=== PATIENT | female | born 1960 | race African-American/Black ===

== ENCOUNTER 2018-05-05 12:41 | Inpatient (IN) | payer OTHER ==
[2018-05-05 13:13] VITALS: BMI 19.3
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
[2018-05-05] MEDS ORDERED: MENTHOL/PHENOL 1 EACH UD MM PRN (13:49)
[2018-05-05] MEDS ORDERED: P-EPHED 60MG/TRIPROLIDI 2.5MG TABLET PO PRN (13:49)
[2018-05-05] MEDS ORDERED: MAGNESIUM CITRATE 300 ML BOTTLE PO PRN (13:49)
[2018-05-05] MEDS ORDERED: MAGNESIUM HYDROX 2400MG/30ML ORAL SUSPENSION 30 ML CUP PO PRN (13:49)
[2018-05-05] MEDS ORDERED: IBUPROFEN 400 MG TABLET (FP) PO PRN (13:49)
[2018-05-05] MEDS ORDERED: MAG HYDROX/AL HYDROX/SIMETH 30 ML UNIT-DOSE CUP PO PRN (13:49)
[2018-05-05] MEDS ORDERED: LOPERAMIDE HCL 2 MG CAPSULE PO PRN (13:49)
[2018-05-05] MEDS ORDERED: guaiFENesin/D-METHORPHAN HB 10 ML UNIT-DOSE CUPS PO PRN (13:49)
[2018-05-05] MEDS ORDERED: hydrOXYzine PAMOATE 25 MG CAPSULE (FP) PO PRN (13:49)
[2018-05-05] MEDS ORDERED: NICOTINE POLACRILEX 2 MG GUM BUC PRN (13:49)
[2018-05-05] MEDS ORDERED: chlordiazePOXIDE HCL 25 MG CAPSULE PO PRN (13:49)
[2018-05-05] MEDS ORDERED: ACETAMINOPHEN 325 MG TABLET (FP) PO PRN (13:49)
--- NOTE | 2018-05-05 16:58 | EKG ---
Test Reason : Blood Pressure : / mmHG Vent. Rate : 086 BPM Atrial Rate : 086 BPM P-R Int : 146 ms QRS Dur : 094 ms QT Int : 384 ms P-R-T Axes : 076 061 049 degrees QTc Int : 459 ms NORMAL SINUS RHYTHM CANNOT RULE OUT ANTERIOR INFARCT , AGE UNDETERMINED ABNORMAL ECG NO PREVIOUS ECGS AVAILABLE Confirmed by HUMBERTO LANGSTON MD ([id number]) on 05/05/2018 4:58:18 PM Referred By: Confirmed By:HUMBERTO LANGSTON MD
[2018-05-05 18:08] LABS: URINE APPEARANCE SLCLOUDY; URINE BILIRUBIN NEGATIVE (<2.0 mg/dL); URINE COLOR YELLOW; URINE GLUCOSE (UA) NEGATIVE (NEGATIVE); URINE KETONE NEGATIVE (NEGATIVE); URINE LEUK ESTERASE NEGATIVE (NEGATIVE); URINE NITRITE NEGATIVE (NEGATIVE); URINE PROTEIN 1+ (NEGATIVE)
[2018-05-05 18:17] LABS: CALCIUM OXALATE CRYSTALS FEW /hpf (NONE SEEN); EPI CELLS RARE /HPF (FEW); URINE BACTERIA MODERATE /hpf (NONE SEEN); URINE MUCUS RARE
[2018-05-05] MEDS ORDERED: MELATONIN 5 MG TABLETS PO PRN (22:00)
[2018-05-05] MEDS: GABAPENTIN 100 MG CAPSULE (FP) PO SCH (22:29)
[2018-05-05] MEDS: THIAMINE HCL 100 MG TABLET (FP) PO SCH (22:29)
[2018-05-05] MEDS: chlordiazePOXIDE HCL 25 MG CAPSULE PO SCH (22:31)
[2018-05-06] MEDS: chlordiazePOXIDE HCL 25 MG CAPSULE PO SCH ×4 (05:39→22:15)
[2018-05-06] MEDS: GABAPENTIN 100 MG CAPSULE (FP) PO SCH ×3 (07:14→22:15)
[2018-05-06] MEDS ORDERED: NICOTINE 14 MG/24 HOURS TOPICAL PATCH TD SCH (10:00)
[2018-05-06] MEDS ORDERED: PRENATAL VITAMINS W/ FOLIC ACID TABLET (FP) PO SCH (10:00)
[2018-05-06 10:49] LABS: HEMATOCRIT 35.3 % (32.4-45.2); HEMOGLOBIN 11.8 GM/dL (10.7-15.3); MCH 27.1 pg (25.7-33.7); MCHC 33.5 g/dl (32.0-36.0); MEAN CELL VOLUME 80.9 fl (80-96); MEAN PLT VOLUME 8.4 fl (7.5-11.1); PLATELET COUNT 270 K/MM3 (134-434); RBC 4.37 M/mm3 (3.60-5.2); RDW 16.3 % (11.6-15.6); WHITE BLOOD COUNT 4.1 K/mm3 (4.0-10.0)
[2018-05-06 11:00] LABS: ALBUMIN 3.7 g/dl (3.4-5.0); ALK PHOS 87 U/L (45-117); ANION GAP 8 MMOL/L (8-16); BILIRUBIN,TOTAL 0.7 mg/dL (0.2-1); BLOOD UREA NITROGEN 23 mg/dL (7-18); CALCIUM 8.6 mg/dL (8.5-10.1); CHLORIDE 104 mmol/L (98-107); CO2 26 mmol/L (21-32); CREATININE 1.1 mg/dL (0.55-1.3); GLUCOSE,RANDOM 121 mg/dL (74-106); POTASSIUM 3.7 mmol/L (3.5-5.1); SGOT/AST 28 U/L (15-37); SGPT/ALT 20 U/L (13-61); SODIUM 138 mmol/L (136-145); TOT PROT 8.6 g/dl (6.4-8.2)
--- NOTE | 2018-05-06 16:42 | PN ---
S CIWA - CIWA Score Nausea/Vomitin-No Nausea/No Vomiting Muscle Tremors: 3 Anxiety: 3 Agitation: 0-Normal Activity Paroxysmal Sweats: 3 Orientation: 0-Oriented Tacttile Disturbances: 3-Moderate Itch/Numb/Burn Auditory Disturbances: 0-None Visual Disturbances: 2-Mild Sensitivity Headache: 0-None Present CIWA-Ar Total Score: 14 BHS Progress Note (SOAP) Subjective: Tremors, Sweating, Itching, Anxious. Objective: PATIENT A & O X 3, OBSERVED AMBULATING ON UNIT. IN NO ACUTE DISTRESS. 05/06/18 16:38 Vital Signs Temperature 97.7 F 05/06/18 13:37 Pulse Rate 70 05/06/18 13:37 Respiratory Rate 18 05/06/18 13:37 Blood Pressure 104/65 05/06/18 13:37 O2 Sat by Pulse Oximetry (%) Laboratory Tests 05/05/18 05/05/18 05/06/18 13:41 14:53 06:30 WBC 4.1 RBC 4.37 Hgb 11.8 Hct 35.3 MCV 80.9 MCH 27.1 MCHC 33.5 RDW 16.3 H Plt Count 270 MPV 8.4 Sodium Potassium Chloride Carbon Dioxide Anion Gap BUN Creatinine Creat Clearance w eGFR POC Glucometer 104 Random Glucose Calcium Total Bilirubin AST ALT Alkaline Phosphatase Total Protein Albumin Urine Color Yellow Urine Appearance Slcloudy Urine pH 5.0 Ur Specific [place] 1.033 Urine Protein 1+ H Urine Glucose (UA) Negative Urine Ketones Negative Urine Blood Negative Urine Nitrite Negative Urine Bilirubin Negative Urine Urobilinogen 2.0 H Ur Leukocyte Esterase Negative Urine WBC (Auto) None Urine RBC (Auto) None Ur Epithelial Cells Rare Calcium Oxalate Crystal Few Urine Bacteria Moderate Urine Mucus Rare 05/06/18 06:30 WBC RBC Hgb Hct MCV MCH MCHC RDW Plt Count MPV Sodium 138 Potassium 3.7 Chloride 104 Carbon Dioxide 26 Anion Gap 8 BUN 23 H Creatinine 1.1 Creat Clearance w eGFR 51.38 POC Glucometer Random Glucose 121 H Calcium 8.6 Total Bilirubin 0.7 AST 28 ALT 20 Alkaline Phosphatase 87 Total Protein 8.6 H Albumin 3.7 Urine Color Urine Appearance Urine pH Ur Specific [place] Urine Protein Urine Glucose (UA) Urine Ketones Urine Blood Urine Nitrite Urine Bilirubin Urine Urobilinogen Ur Leukocyte Esterase Urine WBC (Auto) Urine RBC (Auto) Ur Epithelial Cells Calcium Oxalate Crystal Urine Bacteria Urine Mucus LABS NOTED. RPR RESULT PENDING. 05/06/18 16:41 Assessment: 05/06/18 16:39 WITHDRAWAL SYMPTOMS. ABNORMAL RENAL LAB VALUES. Plan: CONTINUE DETOX. INCREASE DAILY PO FLUID INTAKE. GLUCERNA, 1 CAN BID FOR CALORIE SUPPLEMENTATION. D/C IBUPROFEN AND MAGNESIUM-CONTAINING MEDS. FOR ABNORMAL ADMISSION RENAL LAB VALUES. BMP ON 05/08/2018 FOR ABNORMAL ADMISSION RENAL LAB VALUES.
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
[2018-05-06] MEDS: THIAMINE HCL 100 MG TABLET (FP) PO SCH (22:15)
[2018-05-07] MEDS: chlordiazePOXIDE HCL 25 MG CAPSULE PO SCH (05:20)
[2018-05-07] MEDS: GABAPENTIN 100 MG CAPSULE (FP) PO SCH (05:20)
[2018-05-07 06:14] VITALS: BP 96/62; PULSE 64; TEMP 97.4
--- NOTE | 2018-05-07 14:15 | PN ---
S CIWA - CIWA Score Nausea/Vomitin-No Nausea/No Vomiting Muscle Tremors: 3 Anxiety: 4-Mod. Anxious/Guarded Agitation: 2 Paroxysmal Sweats: 3 Orientation: 0-Oriented Tacttile Disturbances: 1-Very Mild Itch/Numbness Auditory Disturbances: 0-None Visual Disturbances: 0-None Headache: 0-None Present CIWA-Ar Total Score: 13 BHS Progress Note (SOAP) Subjective: Tremors, Sweating, Anxious. Objective: PATIENT A & O X 3, OBSERVED AMBULATING ON UNIT. IN NO ACUTE DISTRESS. 05/07/18 14:14 Vital Signs Temperature 97.4 F L 05/07/18 06:14 Pulse Rate 64 05/07/18 06:14 Respiratory Rate 18 05/07/18 06:14 Blood Pressure 96/62 05/07/18 06:14 O2 Sat by Pulse Oximetry (%) Laboratory Tests 05/05/18 05/05/18 05/06/18 13:41 14:53 06:30 WBC 4.1 RBC 4.37 Hgb 11.8 Hct 35.3 MCV 80.9 MCH 27.1 MCHC 33.5 RDW 16.3 H Plt Count 270 MPV 8.4 Sodium Potassium Chloride Carbon Dioxide Anion Gap BUN Creatinine Creat Clearance w eGFR POC Glucometer 104 Random Glucose Calcium Total Bilirubin AST ALT Alkaline Phosphatase Total Protein Albumin Urine Color Yellow Urine Appearance Slcloudy Urine pH 5.0 Ur Specific [place] 1.033 Urine Protein 1+ H Urine Glucose (UA) Negative Urine Ketones Negative Urine Blood Negative Urine Nitrite Negative Urine Bilirubin Negative Urine Urobilinogen 2.0 H Ur Leukocyte Esterase Negative Urine WBC (Auto) None Urine RBC (Auto) None Ur Epithelial Cells Rare Calcium Oxalate Crystal Few Urine Bacteria Moderate Urine Mucus Rare RPR Titer 05/06/18 05/06/18 06:30 06:30 WBC RBC Hgb Hct MCV MCH MCHC RDW Plt Count MPV Sodium 138 Potassium 3.7 Chloride 104 Carbon Dioxide 26 Anion Gap 8 BUN 23 H Creatinine 1.1 Creat Clearance w eGFR 51.38 POC Glucometer Random Glucose 121 H Calcium 8.6 Total Bilirubin 0.7 AST 28 ALT 20 Alkaline Phosphatase 87 Total Protein 8.6 H Albumin 3.7 Urine Color Urine Appearance Urine pH Ur Specific [place] Urine Protein Urine Glucose (UA) Urine Ketones Urine Blood Urine Nitrite Urine Bilirubin Urine Urobilinogen Ur Leukocyte Esterase Urine WBC (Auto) Urine RBC (Auto) Ur Epithelial Cells Calcium Oxalate Crystal Urine Bacteria Urine Mucus RPR Titer Nonreactive LABS NOTED. Assessment: 05/07/18 14:14 WITHDRAWAL SYMPTOMS. Plan: CONTINUE DETOX.
--- NOTE | 2018-05-07 14:17 | DS ---
[facility] Detox Discharge Summary Admission Date: 05/05/18 Discharge Date: 05/07/18 - History Present History: Alcohol Dependence Additional Comments: PATIENT DOES NOT WISH TO REMAIN TO COMPLETE DETOX REGIMEN. RISKS OF LEAVING DETOX UNIT AGAINST MEDICAL ADVICE AND PRIOR TO COMPLETION OF DETOX REGIMEN EXPLAINED TO PATIENT. PATIENT ADVISED TO FOLLOW-UP WITH MEDICAL PROVIDER DR. Tariq NASSAR ([facility], [place], [place]) WHEN POSSIBLE FOR GENERAL MEDICAL ASSESSMENT AND FOR ABNORMALITIES NOTED ON CXR DONE WHILE ADMITTED FOR DETOX (HISTORY OF POSITIVE PPD; PATIENT REPORTS THAT SHE COMPLETED A FULL COURSE OF ANTIBIOTIC TREATMENT MANY YEARS AGO) AND FOR ABNORMAL RENAL LAB VALUES NOTED (PATIENT DENIES KNOWN HISTORY OF RENAL DISEASE) WHILE ADMITTED FOR DETOX. PATIENT VERBALIZED UNDERSTANDING OF RECOMMENDATIONS. COPIES OF CXR REPORT AND OF ALL LABS DRAWN WHILE ADMITTED FOR DETOX GIVEN TO PATIENT PRIOR TO HER LEAVING DETOX UNIT. PATIENT ADVISED TO GO IMMEDIATELY TO NEAREST ER SHOULD ANY INTOLERABLE DETOX SYMPTOMS DEVELOP AT ANY TIME. PATIENT VERBALIZED UNDERSTANDING OF ALL INFORMATION / RECOMMENDATIONS PRESENTED TO HIM PRIOR TO DEPARTURE FROM DETOX UNIT. PATIENT LEFT DETOX UNIT IN STABLE MEDICAL CONDITION. Pertinent Past History: Asthma, Weight Loss, Nicotine Dependence, H.I.V., History Of Schizoaffective Disorder. - Physical Exam Results Vital Signs: Vital Signs Temperature 97.4 F L 05/07/18 06:14 Pulse Rate 64 05/07/18 06:14 Respiratory Rate 18 05/07/18 06:14 Blood Pressure 96/62 05/07/18 06:14 O2 Sat by Pulse Oximetry (%) Pertinent Admission Physical Exam Findings: WITHDRAWAL SYMPTOMS. Laboratory Tests 05/05/18 05/05/18 05/06/18 13:41 14:53 06:30 WBC 4.1 RBC 4.37 Hgb 11.8 Hct 35.3 MCV 80.9 MCH 27.1 MCHC 33.5 RDW 16.3 H Plt Count 270 MPV 8.4 Sodium Potassium Chloride Carbon Dioxide Anion Gap BUN Creatinine Creat Clearance w eGFR POC Glucometer 104 Random Glucose Calcium Total Bilirubin AST ALT Alkaline Phosphatase Total Protein Albumin Urine Color Yellow Urine Appearance Slcloudy Urine pH 5.0 Ur Specific [place] 1.033 Urine Protein 1+ H Urine Glucose (UA) Negative Urine Ketones Negative Urine Blood Negative Urine Nitrite Negative Urine Bilirubin Negative Urine Urobilinogen 2.0 H Ur Leukocyte Esterase Negative Urine WBC (Auto) None Urine RBC (Auto) None Ur Epithelial Cells Rare Calcium Oxalate Crystal Few Urine Bacteria Moderate Urine Mucus Rare RPR Titer 05/06/18 05/06/18 06:30 06:30 WBC RBC Hgb Hct MCV MCH MCHC RDW Plt Count MPV Sodium 138 Potassium 3.7 Chloride 104 Carbon Dioxide 26 Anion Gap 8 BUN 23 H Creatinine 1.1 Creat Clearance w eGFR 51.38 POC Glucometer Random Glucose 121 H Calcium 8.6 Total Bilirubin 0.7 AST 28 ALT 20 Alkaline Phosphatase 87 Total Protein 8.6 H Albumin 3.7 Urine Color Urine Appearance Urine pH Ur Specific [place] Urine Protein Urine Glucose (UA) Urine Ketones Urine Blood Urine Nitrite Urine Bilirubin Urine Urobilinogen Ur Leukocyte Esterase Urine WBC (Auto) Urine RBC (Auto) Ur Epithelial Cells Calcium Oxalate Crystal Urine Bacteria Urine Mucus RPR Titer Nonreactive LABS NOTED. - Treatment Hospital Course: Detox Protocol Followed, Detoxed Safely - Medication Discharge Medications: Ambulatory Orders Albuterol Sulfate Inhaler - [Ventolin Hfa Inhaler -] 1 - 2 inh PO Q4H PRN Beclomethasone Dipropionate [Qvar Redihaler] 10.6 gm IH BID 05/05/18 Darunavir/Cobicistat [Prezcobix 800 mg-150 mg Tablet] 1 each PO DAILY 05/05/18 Emtricitabine/Tenofov Alafenam [Descovy 200-25 mg Tablet (Nf)] 1 each PO DAILY 05/05/18 - Diagnosis (1) Alcohol dependence with withdrawal Status: Acute Qualifiers: Complication of substance-induced condition: uncomplicated Qualified Code(s ): F10.230 - Alcohol dependence with withdrawal, uncomplicated (2) Cocaine dependence Status: Acute Qualifiers: Substance use status: uncomplicated Qualified Code(s): F14.20 - Cocaine dependence, uncomplicated (3) Weight loss Status: Acute (4) Asthma Status: Chronic Qualifiers: Asthma severity: mild Asthma persistence: unspecified Asthma complication type: unspecified Qualified Code(s): J45.909 - Unspecified asthma , uncomplicated (5) Diabetes mellitus type 2 in nonobese Status: Chronic (6) HIV (human immunodeficiency virus infection) Status: Chronic Qualifiers: HIV symptom status: unspecified Qualified Code(s): B20 - Human immunodeficiency virus [HIV] disease (7) Substance induced mood disorder Status: Suspected - AMA Did Patient Leave Against Medical Advice: Yes (PATIENT DID NOT WISH TO REAMIN TO COMPLETE DETOX REGIMEN.)
[2018-05-07] MEDS ORDERED: chlordiazePOXIDE 5 MG CAPSULE PO SCH (23:00)
[2018-05-08] MEDS ORDERED: chlordiazePOXIDE HCL 10 MG CAPSULE PO SCH (23:00)
== END 2018-05-07 10:28 | disposition left against medical advice (07) | DRG 770 ==
LOC: YASAS 12:41 → Y3N 13:46
PROVIDERS: ADMIT Surgery; ATTEND Surgery
PROC: HZ2ZZZZ Detoxification Services for Substance Abuse Treatment (ICD-10-PCS; principal; 2018-05-05)
DX: F10.230 Alcohol dependence with withdrawal, uncomplicated (principal); F14.20 Cocaine dependence, uncomplicated; F17.210 Nicotine dependence, cigarettes, uncomplicated; F19.24 Other psychoactive substance dependence with psychoactive substance-induced mood disorder; Z21 Asymptomatic human immunodeficiency virus [HIV] infection status; J45.909 Unspecified asthma, uncomplicated; E11.9 Type 2 diabetes mellitus without complications; R94.4 Abnormal results of kidney function studies; Z88.0 Allergy status to penicillin
CPT/HCPCS: 36415; 71046-TC-FY; 80053; 81003; 81015; 82962; 85027; 86593; 93005; 93010

== ENCOUNTER 2019-01-27 17:01 | Inpatient (IN) | payer OTHER ==
[2019-01-27 17:16] VITALS: BMI 18.5
[2019-01-27] MEDS ORDERED: ACETAMINOPHEN 325 MG TABLET (FP) PO ONE (17:53)
[2019-01-27 18:25] LABS: BASO % 0.4 % (0-2.0); EOS % 0.2 % (0-4.5); HEMATOCRIT 31.6 % (32.4-45.2); HEMOGLOBIN 10.5 GM/dL (10.7-15.3); LYMPH % 28.8 % (8-40); MCHC 33.2 g/dl (32.0-36.0); MEAN CELL VOLUME 75.2 fl (80-96); MEAN PLT VOLUME 7.5 fl (7.5-11.1); MONO % 8.9 % (3.8-10.2); NEUT % 61.7 % (42.8-82.8); PLATELET COUNT 357 K/MM3 (134-434); RBC 4.21 M/mm3 (3.60-5.2); RDW 14.7 % (11.6-15.6); WHITE BLOOD COUNT 9.9 K/mm3 (4.0-10.0)
--- NOTE | 2019-01-27 18:25 | PDOC ---
*Physical Exam - Vital Signs Last Vital Signs Temp Pulse Resp BP Pulse Ox 102.7 F H 82 18 105/55 L 98 01/27/19 17:13 01/27/19 17:13 01/27/19 17:13 01/27/19 17:13 01/27/19 17:13 ED Treatment Course - LABORATORY CBC & Chemistry Diagram: 01/28/19 05:50 01/28/19 05:50 - Medications Given in the ED: ED Medications Discontinued Medications Generic Name Dose Route Start Last Admin Trade Name Tim PRN Reason Stop Dose Admin Acetaminophen 975 mg 01/27/19 17:53 01/27/19 18:04 Tylenol - PO 01/27/19 17:54 975 mg ONCE ONE Administration Medical Decision Making - Medical Decision Making 01/27/19 18:24 58-year-old female referred from [facility] due to fevers. Patient has had a symptom of upper respiratory infection for the past 2 weeks. Noted to be febrile to 102 today. Patient has a history of HIV, unknown CD4 viral load. Patient does have a cough Pt seen by Midlevel Provider under my direct supervision Pt interviewed and examined Patient is very angry and frustrated with staff Regular rate and rhythm Rhonchorous breath sounds Ancillary studies reviewed Laboratory Tests 01/27/19 18:15 WBC 9.9 Hgb 10.5 L Hct 31.6 L Plt Count 357 D CMP pending Would have low threshold to admit this patient given HIV, unknown CD4 viral load , unknown compliance with HAART CT pending I agree with plan as outlined by Midlevel Provider 01/27/19 18:31 01/27/19 18:49 Discharge - Discharge Information Problems reviewed: Yes Clinical Impression/Diagnosis: Pneumonia Qualifiers: Pneumonia type: due to unspecified organism Laterality: bilateral Lung location : unspecified part of lung Qualified Code(s): J18.9 - Pneumonia, unspecified organism Condition: Stable - Admission Yes - Follow up/Referral - Patient Discharge Instructions - Post Discharge Activity
--- NOTE | 2019-01-27 19:04 | PDOC ---
History of Present Illness - General Chief Complaint: Cold Symptoms Stated Complaint: FEVER Time Seen by Provider: 01/27/19 17:47 History Source: Patient Exam Limitations: No Limitations Past History - Past Medical History Allergies/Adverse Reactions: Allergies Allergy/AdvReac Type Severity Reaction Status Date / Time Penicillins Allergy Verified 01/27/19 17:16 apple AdvReac Verified 01/27/19 17:16 apple juice AdvReac Uncoded 01/27/19 17:16 Home Medications: Ambulatory Orders Albuterol Sulfate Inhaler - [Ventolin Hfa Inhaler -] 1 - 2 inh PO Q4H PRN Beclomethasone Dipropionate [Qvar Redihaler] 10.6 gm IH BID 05/05/18 Bictegrav/Emtricit/Tenofov Ala [Biktarvy 50-200-25 mg Tablet] 1 each PO DAILY Metformin HCl [Glucophage] 500 mg PO BID 01/27/19 Quetiapine Fumarate [Seroquel -] 25 mg PO HS 01/27/19 Asthma: Yes (ON FLOVENT) Cardiac Disorders: No COPD: No Diabetes: Yes (DIET CONTROLLED) GI Disorders: No Disorders: No HTN: No Kidney Stones: No Seizures: No - Surgical History Abdominal Surgery: No Appendectomy: No Cardiac Surgery: No Cholecystectomy: No Lung Surgery: No Neurologic Surgery: No Orthopedic Surgery: No - Psycho Social/Smoking Cessation Hx Smoking History: Current every day smoker Have you smoked in the past 12 months: Yes Number of Cigarettes Smoked Daily: 5 Information on smoking cessation initiated: No 'Breaking Loose' booklet given: 05/05/18 Drug/Substance Use Hx: Yes Substance Use Type: Alcohol, Cocaine Hx Substance Use Treatment: Yes ([facility] detox one week ago left AMA ) Respiratory Specific PMHX - Complaint Specific PMHX Hx TB (Tuberculosis): No *Physical Exam - Vital Signs Last Vital Signs Temp Pulse Resp BP Pulse Ox 102.1 F H 82 18 105/55 L 98 01/27/19 18:59 01/27/19 17:13 01/27/19 17:13 01/27/19 17:13 01/27/19 17:13 - Physical Exam General Appearance: No: Apparent Distress HEENT: positive: Normal Voice. negative: Muffled/Hoarse voice, Pharyngeal Erythema, Tonsillar Exudate, Tonsillar Erythema, Nasal Congestion, Rhinorrhea Respiratory/Chest: positive: Lungs Clear, Normal Breath Sounds. negative: Respiratory Distress Cardiovascular: positive: Regular Rhythm, Regular Rate, S1, S2. negative: Murmur Gastrointestinal/Abdominal: positive: Normal Bowel Sounds, Soft. negative: Tender, Distended, Guarding, Rebound Integumentary: positive: Normal Color Neurologic: positive: Alert ED Treatment Course - LABORATORY CBC & Chemistry Diagram: 01/27/19 18:15 01/27/19 18:15 - ADDITIONAL ORDERS Additional order review: 01/27/19 18:15 RBC 4.21 MCV 75.2 L MCHC 33.2 RDW 14.7 MPV 7.5 D Neutrophils % 61.7 Lymphocytes % 28.8 Monocytes % 8.9 Eosinophils % 0.2 Basophils % 0.4 - RADIOLOGY Radiology Studies Ordered: Category Date Time Status CHEST CT WITHOUT CONTRAST [CT] Stat CT Scan 01/27/19 18:49 Ordered CHEST PA & LAT [RAD] Stat Radiology 01/27/19 17:53 Taken - Medications Given in the ED: ED Medications Discontinued Medications Generic Name Dose Route Start Last Admin Trade Name Freq PRN Reason Stop Dose Admin Acetaminophen 975 mg 01/27/19 17:53 01/27/19 18:04 Tylenol - PO 01/27/19 17:54 975 mg ONCE ONE Administration Medical Decision Making - Medical Decision Making 58 y/o F hx of asthma, DM, HIV (unknown last viral load, unknown last CD4 count) , depression, schizoaffective disorder, substance abuse (cocaine, alcohol) was sent from [facility] as feeling "sick" x 2 weeks. Patient endorses having productive cough with phlegm, rhinorrhea and congestion. Was unaware of any fever until it was checked in triage today. Denies taking any antipyretics today. Denies ear pain, throat pain, sob, cp, abd pain, n/v/d, urinary symptoms. Denies recent hospitalizations. Last alcohol drink this AM. Is smoker since age 13, used to smoke 1 ppd, but has now cut down to 2 cigs/day. R/O source of fever Plan: Labs, CXR, blood/urine culture, flu swab, Tylenol CXR was reviewed - new opacities noted on R side of lung, few on L side as well D/W Dr. Velsaquez - recommends CT chest non-contrast for further evaluation No suspicion for HCAP; likely CAP Patient allergic to penicillin Will start on Levaquin 01/27/19 19:00 CT chest shows B/L upper and lower infiltrated Also notable for several B/L upper and lower lobe spiculated nodular opacities - could possibly be multifocal primary neoplastic disease Will admit patient; will need pulmonary consult as inpatient 01/27/19 20:14 Discharge - Discharge Information Problems reviewed: Yes Clinical Impression/Diagnosis: Pneumonia Qualifiers: Pneumonia type: due to unspecified organism Laterality: bilateral Lung location : unspecified part of lung Qualified Code(s): J18.9 - Pneumonia, unspecified organism Condition: Stable - Admission Yes - Follow up/Referral - Patient Discharge Instructions - Post Discharge Activity
[2019-01-27 19:07] LABS: ALBUMIN 2.9 g/dl (3.4-5.0); BILIRUBIN,TOTAL 0.4 mg/dL (0.2-1); BLOOD UREA NITROGEN 9.8 mg/dL (7-18); CALCIUM 8.6 mg/dL (8.5-10.1); CREATININE 0.9 mg/dL (0.55-1.3); POTASSIUM 3.2 mmol/L (3.5-5.1); TOT PROT 8.9 g/dl (6.4-8.2)
[2019-01-27] MEDS ORDERED: POTASSIUM CHLORIDE ORAL LIQUID 20 MEQ/15 ML PO ONE (19:18)
[2019-01-27] MEDS ORDERED: IBUPROFEN 600 MG TABLET (FP) PO ONE (19:38)
[2019-01-27 19:40] LABS: MAGNESIUM 1.9 mg/dL (1.8-2.4)
[2019-01-27] MEDS ORDERED: POTASSIUM CHLORIDE ORAL LIQUID 20 MEQ/15 ML ONE (20:21)
--- NOTE | 2019-01-27 20:35 | PN ---
Teaching Attending Note Name of Resident: Yue Meraz ATTENDING PHYSICIAN STATEMENT I saw and evaluated the patient. I reviewed the resident's note and discussed the case with the resident. I agree with the resident's findings and plan as documented. SUBJECTIVE: Patient is a 58 year old woman with PMH of Penicillin allergy, Asthma, DM, Tobacco use, HIV disease(unknown last viral load/CD4 count), Depression, Schizoaffective disorder and Polysubstance abuse (cocaine, alcohol) sent from [facility] for "feeling sick" x 2 weeks. Patient has had productive cough with phlegm, rhinorrhea and congestion. Was unaware of any fever until it was checked in triage today. Denies taking any antipyretics today. Denies ear pain, throat pain, SOB, chest pain, abdominal pain, nausea, vomiting, diarrhea or urinary symptoms. Denies recent hospitalizations. Last alcohol drink was this morning. OBJECTIVE: Alert Vital Signs Period Temp Pulse Resp BP Sys/Perkins Pulse Ox Last 24 Hr 99 F-102.7 F 82 18 105/55 98 HEENT: No Jaundice, eye redness or discharge, PERRLA, EOMI. Normocephalic, atraumatic. External ears are normal and hearing is grossly intact. No nasal discharge. Neck: Supple, nontender. No palpable adenopathy or thyromegaly. No JVD Chest: Good effort. Clear to auscultation and percussion. Heart: Regular. No S3, rub or murmur Abdomen: Not distended, soft, nontender and no HSM. No rebound or guarding. Normal bowel sounds. Ext: Peripheral pulses intact. No leg edema. Skin: Warm and dry. No petechiae, rash or ecchymosis. Neuro: Alert. Oriented x3. CN 2-12 grossly intact. Sensation grossly intact in all four extremities and DTR are symmetric. Psych: Appropriate mood and affect. Good insight. Current Medications Generic Name Dose Route Start Last Admin Trade Name Freq PRN Reason Stop Dose Admin Sodium Chloride 500 mls @ 500 mls/hr 01/27/19 21:04 Normal Saline - IV 01/27/19 22:03 ASDIR STA Home Medications Medication Instructions Recorded Albuterol Sulfate Inhaler - 1 - 2 inh PO Q4H PRN 05/05/18 [Ventolin Hfa Inhaler -] Beclomethasone Dipropionate [Qvar 10.6 gm IH BID 05/05/18 Redihaler] Bictegrav/Emtricit/Tenofov Ala 1 each PO DAILY 01/27/19 [Biktarvy 50-200-25 mg Tablet] Metformin HCl [Glucophage] 500 mg PO BID 01/27/19 Quetiapine Fumarate [Seroquel -] 25 mg PO HS 01/27/19 Abnormal Lab Results 01/27/19 01/27/19 18:15 18:15 Hgb 10.5 L Hct 31.6 L MCV 75.2 L MCH 25.0 L Sodium 134 L Potassium 3.2 L Anion Gap 4 L ALT 9 L Total Protein 8.9 H Albumin 2.9 L ASSESSMENT AND PLAN: 1. Sepsis due to Multilobar pneumonia - CXR showed RLL infiltrates. CT chest shows bilateral upper and lower infiltrates. Also notable for several bilateral upper and lower lobe spiculated nodular opacities - could possibly be multifocal primary neoplastic disease. While in the ER, her BP dropped to a systolic BP of 80-85 mmHg. Flu swab negative. Sepsis workup done. Will rule out TB (sputum for AFB, Quantiferon-TB gold), place on isolation, urine legionella, sputum cytology, get viral load/CD4 count, consult ID and Pulmonary. May need bronchoscopy to characterize upper lobe nodules. Treat with IV Vancomycin, Levofloxacin and Azithromycin. EKG is pending. Etiology of hyponatremia and hypokalemia is unclear. Will check serum Mg+, give KCL and IV NS. Will continue comprehensive care for all of patients comorbid conditions including HAART for HIV. 2. DM For now, we will hold the home diabetes drugs and implement sliding scale insulin regimen. Provide comprehensive diabetes care with patient teaching and counseling about the importance of adherence to prescribed diabetes regimen, euglycemia, eye care and foot care. 3. Tobacco Use Counseled on risks associated with tobacco use. We will provide patient all the necessary assistance to facilitate smoking cessation and prescribe Nicotine patch. 4. Anemia with low MCV - Likely multifactorial. Do basic anemia work up including serial stool guaiacs, reticulocyte count and iron studies. Refer to GI for outpatient colonoscopy. 5. Polysubstance abuse - Monitor closely for drug withdrawal. Implement [facility] alcohol withdrawal protocol and do neurochecks. Implement seizure, fall and aspiration precautions. Treat with thiamine and folic acid and monitor electrolytes (Ca,Mg,K,P). Counseled patient about abstaining from alcohol and illicit drug use. Will consult leave specialist and refer to alcohol/drug detox upon discharge. 6. DVT prophylaxis - Lovenox 40 mg SQ q 24 hours. 7. Advance directives - Full code
[2019-01-27] MEDS ORDERED: SODIUM CHLORIDE 500 ML IV STA (21:04)
[2019-01-27] MEDS ORDERED: SODIUM CHLORIDE 1,000 ML IV SCH (21:45)
[2019-01-27] MEDS ORDERED: PIPERACILLIN/TAZOB 3.375 GM 3.375 GM in DEXTROSE 5%-WATER - 50 ML IVPB SCH (21:48)
[2019-01-27] MEDS ORDERED: AZITHROMYCIN IVPB 500 MG/250 ML BAG IVPB ONE ×2 (21:49→22:32)
[2019-01-27] MEDS ORDERED: chlordiazePOXIDE HCL 25 MG CAPSULE PO PRN (21:52)
[2019-01-27] MEDS ORDERED: FOLIC ACID 1 MG TABLET (FP) ONE (22:31)
[2019-01-27] MEDS ORDERED: chlordiazePOXIDE HCL 25 MG CAPSULE ONE (22:31)
[2019-01-27] MEDS ORDERED: THIAMINE HCL 100 MG TABLET (FP) ONE (22:31)
--- NOTE | 2019-01-27 22:31 | HP ---
CHIEF COMPLAINT: cough and fever PCP: N/A HISTORY OF PRESENT ILLNESS: 58 y/o F, pmh of HIV on Biktarvy (unknown CD4 count and Viral load), depression , schizoaffective disorder, substance abuse (cocaine and alcohol), DM on metformin, presents from [facility] for a productive cough and was found to be febrile with a temp of 102. Pt came from [place] for detox at [facility], when she began to develop symptoms. In the Ed, she was started on Levaquin. CAT scan of her chest was evident for b/l pneumonia and spiculated nodular findings. She was also found to be hypotensive in the ER, for which she was given a bolus. She sees an HIV specialist who prescribes her HIV meds, however, she reports she has been noncompliant with meds for the past few weeks because she ran out. She was hoping for refills when she came to [facility]. Currently, pt appears stable, but remains hypotensive and symptomatic. Denies c/n/v/d/sob/chest pain/ abdominal pain/night sweats. ER course was notable for: (1)levaquin (2)CT scan: b/l infiltrates, spiculated nodular opacities seen b/l (3)BCx pending Recent Travel: denies PAST MEDICAL HISTORY: HIV on Biktarvy (unknown CD4 count and Viral load), depression, schizoaffective disorder, substance abuse (cocaine and alcohol), DM PAST SURGICAL HISTORY: x2 Social History: Smokin ciggs/day x 48 yrs Alcohol:10 drinks/day, vodka, last drink today morning Drugs: cocaine- last use in the morning today Allergies Penicillins Allergy (Verified 01/27/19 17:16) apple Adverse Reaction (Verified 01/27/19 17:16) apple juice Adverse Reaction (Uncoded 01/27/19 17:16) HOME MEDICATIONS: Home Medications Medication Instructions Recorded Albuterol Sulfate Inhaler - 1 - 2 inh PO Q4H PRN 05/05/18 [Ventolin Hfa Inhaler -] Beclomethasone Dipropionate [Qvar 10.6 gm IH BID 05/05/18 Redihaler] Bictegrav/Emtricit/Tenofov Ala 1 each PO DAILY 01/27/19 [Biktarvy 50-200-25 mg Tablet] Metformin HCl [Glucophage] 500 mg PO BID 01/27/19 Quetiapine Fumarate [Seroquel -] 25 mg PO HS 01/27/19 REVIEW OF SYSTEMS CONSTITUTIONAL: Absent: denies fever, chills, diaphoresis, generalized weakness, HEENT: Absent: visual changes CARDIOVASCULAR: Absent: chest pain, palpitations, irregular heart rate, RESPIRATORY: Absent: cough, shortness of breath, dyspnea with exertion, orthopnea, GASTROINTESTINAL: Absent: abdominal pain, abdominal distension, nausea, vomiting, diarrhea, GENITOURINARY: Absent: dysuria, frequency, urgency, hesitancy, hematuria, flank pain, HEMATOLOGIC/IMMUNOLOGIC: Absent: easy bleeding, easy bruising, lymphadenopathy, ENDOCRINE: Absent: unexplained weight gain, unexplained weight loss, heat intolerance, cold intolerance NEUROLOGIC: Absent: headache, focal weakness or paresthesias, dizziness, unsteady gait, seizure, PSYCHIATRIC: Absent: anxiety, depression, PHYSICAL EXAMINATION Vital Signs - 24 hr 01/27/19 01/27/19 01/27/19 17:13 18:59 20:44 Temperature 102.7 F H 102.1 F H 99 F Pulse Rate 82 Respiratory 18 Rate Blood Pressure 105/55 L O2 Sat by Pulse 98 Oximetry (%) GENERAL: Awake, alert, and fully oriented, in no acute distress. EYES: Pupils equal, round and reactive to light, extraocular movements intact, sclera anicteric, conjunctiva clear. Dry mucosa EARS, NOSE, THROAT: oropharynx clear without exudates. NECK: Normal range of motion, supple without lymphadenopathy, JVD, or masses. LUNGS: Breath sounds equal, clear to auscultation bilaterally. No wheezes, and no crackles. HEART: Regular rate and rhythm, normal S1 and S2 without murmur, rub or gallop. ABDOMEN: Soft, nontender, not distended, normoactive bowel sounds, no guarding, no rebound, no masses. UPPER EXTREMITIES: 2+ pulses, warm, well-perfused. No cyanosis. LOWER EXTREMITIES: 2+ pulses, warm, well-perfused. No calf tenderness. PSYCHIATRIC: Cooperative. Good eye contact. Appropriate mood and affect. SKIN: Warm, dry, normal turgor, no rashes or lesions noted, Laboratory Results - last 24 hr CBC,CMP WBC 9.9 K/mm3 (4.0-10.0) 01/27/19 18:15 RBC 4.21 M/mm3 (3.60-5.2) 01/27/19 18:15 Hgb 10.5 GM/dL (10.7-15.3) L 01/27/19 18:15 Hct 31.6 % (32.4-45.2) L 01/27/19 18:15 MCV 75.2 fl (80-96) L 01/27/19 18:15 MCH 25.0 pg (25.7-33.7) L 01/27/19 18:15 MCHC 33.2 g/dl (32.0-36.0) 01/27/19 18:15 RDW 14.7 % (11.6-15.6) 01/27/19 18:15 Plt Count 357 K/MM3 (134-434) D 01/27/19 18:15 MPV 7.5 fl (7.5-11.1) D 01/27/19 18:15 Absolute Neuts (auto) 6.1 K/mm3 (1.5-8.0) 01/27/19 18:15 Neutrophils % 61.7 % (42.8-82.8) 01/27/19 18:15 Lymphocytes % 28.8 % (8-40) 01/27/19 18:15 Monocytes % 8.9 % (3.8-10.2) 01/27/19 18:15 Eosinophils % 0.2 % (0-4.5) 01/27/19 18:15 Basophils % 0.4 % (0-2.0) 01/27/19 18:15 Nucleated RBC % 0 % (0-0) 01/27/19 18:15 Sodium 134 mmol/L (136-145) L 01/27/19 18:15 Potassium 3.2 mmol/L (3.5-5.1) L 01/27/19 18:15 Chloride 100 mmol/L (98-107) 01/27/19 18:15 Carbon Dioxide 29 mmol/L (21-32) 01/27/19 18:15 Anion Gap 4 MMOL/L (8-16) L 01/27/19 18:15 BUN 9.8 mg/dL (7-18) 01/27/19 18:15 Creatinine 0.9 mg/dL (0.55-1.3) 01/27/19 18:15 Est GFR (CKD-EPI)AfAm 82.26 01/27/19 18:15 Est GFR (CKD-EPI)NonAf 70.98 01/27/19 18:15 Random Glucose 100 mg/dL (74-106) 01/27/19 18:15 Calcium 8.6 mg/dL (8.5-10.1) 01/27/19 18:15 Magnesium 1.9 mg/dL (1.8-2.4) 01/27/19 18:15 Total Bilirubin 0.4 mg/dL (0.2-1) 01/27/19 18:15 AST 22 U/L (15-37) 01/27/19 18:15 ALT 9 U/L (13-61) L 01/27/19 18:15 Alkaline Phosphatase 82 U/L (45-117) 01/27/19 18:15 Total Protein 8.9 g/dl (6.4-8.2) H 01/27/19 18:15 Albumin 2.9 g/dl (3.4-5.0) L 01/27/19 18:15 ASSESSMENT/PLAN: 58 y/o F, pmh of HIV on Biktarvy (unknown CD4 count and Viral load), depression , schizoaffective disorder, substance abuse (cocaine and alcohol), DM on metformin, presents from [facility] for a productive cough and was found to be febrile with a temp of 102 is admitted for pneumonia #Sepsis 2/2 to Pneumonia Likely 2/2 to opportunistic infxn vs HAP vs CAP possibly shock if not responsive to fluid BP at 85/48 w/ fever w/ pneumonia- source NS at 100 NS bolus Regular BP monitoring Cont Levaquin Start on Azithromycin 500 today and titrate to 250 starting jas Vanc 1gm ID consulted- Dr. Gagnon Urine Legionella Sputum Cx- will f/u AFB cx- f/u #Spiculated nodular opacities Concerning for neoplasm vs TB vs opportunistic infxn Pulmonary consulted- Dr. Cassidy TB testing- Quantiferon ordered #HIV HIV 4th gen test- CD4 count and viral load UA ordered #Anemia hb 10.5 today in the past hb 11.8 iron studies ordered consider GI consult in the am #Alcohol withdrawal started on Librium protocal folate and thiamine Fall precaution #DVT Lovenox FEN diabetic diet NS at 100 monitor lytes Dispo: f/u ID consult, pulmonary consult, f/u tests and Cx Visit type - Emergency Visit Emergency Visit: Yes ED Registration Date: 01/27/19 Care time: The patient presented to the Emergency Department on the above date and was hospitalized for further evaluation of their emergent condition. - New Patient This patient is new to me today: Yes Date on this admission: 01/28/19 - Critical Care Critical Care patient: No ATTENDING PHYSICIAN STATEMENT I saw and evaluated the patient. I reviewed the resident's note and discussed the case with the resident. I agree with the resident's findings and plan as documented. SUBJECTIVE: OBJECTIVE: ASSESSMENT AND PLAN:
[2019-01-27] MEDS: chlordiazePOXIDE HCL 25 MG CAPSULE PO SCH ×3 (22:40→22:50)
[2019-01-27] MEDS: FOLIC ACID 1 MG TABLET (FP) PO SCH (22:48)
[2019-01-27] MEDS: THIAMINE HCL 100 MG TABLET (FP) PO SCH (22:48)
[2019-01-27 23:01] LABS: EPI CELLS 8.1 /HPF (0-5/HPF); HYALINE CASTS 54 /lpf (0-8); URINE APPEARANCE TURBID; URINE BACTERIA 67.6 /hpf (NEGATIVE); URINE BILIRUBIN NEGATIVE (NEGATIVE); URINE COLOR DK YELLOW; URINE GLUCOSE (UA) NEGATIVE (NEGATIVE); URINE KETONE TRACE (NEGATIVE); URINE LEUK ESTERASE TRACE (NEGATIVE); URINE NITRITE NEGATIVE (NEGATIVE); URINE PROTEIN 2+ (NEGATIVE); URINE RBC 1 /hpf (0-4); URINE WBC 12 /hpf (0-5)
[2019-01-28] MEDS: VANCOMYCIN 1,250 MG in DEXTROSE 5%-WATER - 250 ML IVPB SCH ×2 (00:50→09:36)
[2019-01-28] MEDS: INSULIN SLIDING SCALE (NOVOLOG) 1 VIAL SQ SCH ×3 (02:57→10:20)
[2019-01-28] MEDS ORDERED: chlordiazePOXIDE HCL 25 MG CAPSULE ONE (05:08)
[2019-01-28 06:39] LABS: BASO % 0.8 % (0-2.0); EOS % 0.5 % (0-4.5); HEMATOCRIT 32.3 % (32.4-45.2); HEMOGLOBIN 10.5 GM/dL (10.7-15.3); LYMPH % 30.7 % (8-40); MCH 24.7 pg (25.7-33.7); MCHC 32.6 g/dl (32.0-36.0); MEAN CELL VOLUME 75.7 fl (80-96); MEAN PLT VOLUME 8.1 fl (7.5-11.1); MONO % 12.1 % (3.8-10.2); NEUT % 55.9 % (42.8-82.8); PLATELET COUNT 304 K/MM3 (134-434); RBC 4.27 M/mm3 (3.60-5.2); RDW 14.4 % (11.6-15.6); WHITE BLOOD COUNT 5.4 K/mm3 (4.0-10.0)
[2019-01-28 07:05] LABS: ALBUMIN 2.6 g/dl (3.4-5.0); BILIRUBIN,TOTAL 0.5 mg/dL (0.2-1); CALCIUM 8.6 mg/dL (8.5-10.1); CREATININE 0.7 mg/dL (0.55-1.3); MAGNESIUM 2.1 mg/dL (1.8-2.4); PHOSPHOROUS 2.8 mg/dL (2.5-4.9); POTASSIUM 3.4 mmol/L (3.5-5.1); TOT PROT 8.2 g/dl (6.4-8.2)
[2019-01-28 07:28] VITALS: TEMP 99.5
[2019-01-28] MEDS ORDERED: AZITHROMYCIN IVPB 500 MG/250 ML BAG IVPB ONE (08:01)
[2019-01-28] MEDS ORDERED: VANCOMYCIN 500 MG VIAL (RESTRICTED TO ID ONLY) ONE (08:01)
[2019-01-28] MEDS ORDERED: THIAMINE HCL 100 MG TABLET (FP) ONE (08:01)
[2019-01-28] MEDS ORDERED: FOLIC ACID 1 MG TABLET (FP) ONE (08:01)
[2019-01-28] MEDS ORDERED: VANCOMYCIN 1 GRAM (PRE-DOCKED) 1,000 MG/250 ML BAG IVPB ONE (08:02)
[2019-01-28] MEDS ORDERED: ENOXAPARIN NA (PORCINE) 40 MG/0.4 ML DISP.SYRIN SQ ONE (08:02)
[2019-01-28] MEDS: chlordiazePOXIDE HCL 25 MG CAPSULE PO SCH ×2 (08:16→12:41)
[2019-01-28] MEDS: THIAMINE HCL 100 MG TABLET (FP) PO SCH (09:04)
[2019-01-28] MEDS: FOLIC ACID 1 MG TABLET (FP) PO SCH (09:04)
[2019-01-28] MEDS ORDERED: AZITHROMYCIN IVPB 250 MG in DEXTROSE 5%-WATER - 250 ML IVPB SCH (10:00)
[2019-01-28] MEDS ORDERED: ENOXAPARIN NA (PORCINE) 40 MG/0.4 ML DISP.SYRIN SQ SCH (10:00)
[2019-01-28] MEDS ORDERED: VANCOMYCIN 1 GM in D5W (PRE-DOCKED) 1,000 MG/250 ML IVPB SCH (10:00)
[2019-01-28 10:02] VITALS: BP 100/55; PULSE 67
--- NOTE | 2019-01-28 10:25 | PN ---
Progress Note (short form) - Note Progress Note: Patient is seen and examined, Patient is c/o not having good food. Asking for the lunch. Otherwise feels well, no fever or chills. Vital Signs Temperature 99.5 F 01/28/19 07:22 Pulse Rate 67 01/28/19 10:00 Respiratory Rate 18 01/28/19 10:00 Blood Pressure 100/55 L 01/28/19 10:00 O2 Sat by Pulse Oximetry (%) 99 01/28/19 10:00 GENERAL: The patient is awake, alert, and fully oriented, in no acute distress. HEAD: Normal with no signs of trauma. EYES: PERRL, extraocular movements intact, sclera anicteric, conjunctiva clear. ENT: Ears normal, oropharynx clear without exudates, moist mucous membranes. NECK: Trachea midline, full range of motion, supple. LUNGS: decreased BS at the bases , no wheezes, no crackles, no accessory muscle use. HEART: Regular rate and rhythm, S1, S2 without murmur, rub or gallop. ABDOMEN: Soft, nontender, nondistended, normoactive bowel sounds, no guarding, no rebound, no hepatosplenomegaly, no masses. EXTREMITIES: 2+ pulses, warm, well-perfused, no edema. NEUROLOGICAL: Cranial nerves II through XII grossly intact. Normal speech, gait not observed. PSYCH: looks disshelfed. SKIN: Warm, dry, normal turgor, no rashes or lesions noted CBCD WBC 5.4 K/mm3 (4.0-10.0) 01/28/19 05:50 RBC 4.27 M/mm3 (3.60-5.2) 01/28/19 05:50 Hgb 10.5 GM/dL (10.7-15.3) L 01/28/19 05:50 Hct 32.3 % (32.4-45.2) L 01/28/19 05:50 MCV 75.7 fl (80-96) L 01/28/19 05:50 MCHC 32.6 g/dl (32.0-36.0) 01/28/19 05:50 RDW 14.4 % (11.6-15.6) 01/28/19 05:50 Plt Count 304 K/MM3 (134-434) 01/28/19 05:50 MPV 8.1 fl (7.5-11.1) 01/28/19 05:50 CMP Sodium 137 mmol/L (136-145) 01/28/19 05:50 Potassium 3.4 mmol/L (3.5-5.1) L 01/28/19 05:50 Chloride 105 mmol/L (98-107) 01/28/19 05:50 Carbon Dioxide 29 mmol/L (21-32) 01/28/19 05:50 Anion Gap 4 MMOL/L (8-16) L 01/28/19 05:50 BUN 7.0 mg/dL (7-18) 01/28/19 05:50 Creatinine 0.7 mg/dL (0.55-1.3) 01/28/19 05:50 Random Glucose 86 mg/dL (74-106) 01/28/19 05:50 Calcium 8.6 mg/dL (8.5-10.1) 01/28/19 05:50 Total Bilirubin 0.5 mg/dL (0.2-1) 01/28/19 05:50 AST 17 U/L (15-37) 01/28/19 05:50 ALT 7 U/L (13-61) L 01/28/19 05:50 Alkaline Phosphatase 76 U/L (45-117) 01/28/19 05:50 Total Protein 8.2 g/dl (6.4-8.2) 01/28/19 05:50 Albumin 2.6 g/dl (3.4-5.0) L 01/28/19 05:50 Current Medications Generic Name Dose Route Start Last Admin Trade Name Freq PRN Reason Stop Dose Admin Chlordiazepoxide HCl 10 mg 01/29/19 05:00 Librium - PO 01/29/19 23:01 [id number] JOHAN Chlordiazepoxide HCl 10 mg 01/30/19 05:00 Librium - PO 01/30/19 17:01 Q12H JOHAN Chlordiazepoxide HCl 10 mg 01/29/19 00:00 Librium - PO 01/30/19 00:00 Q4H PRN WITHDRAWAL(CONT SUBST) Chlordiazepoxide HCl 10 mg 01/31/19 05:00 Librium - PO 01/31/19 05:01 ONCE@0500 ONE Chlordiazepoxide HCl 25 mg 01/28/19 05:00 01/28/19 08:16 Librium - PO 01/28/19 23:01 25 mg [id number] JOHAN Administration Chlordiazepoxide HCl 25 mg 01/27/19 21:52 Librium - PO 01/28/19 23:59 Q4H PRN WITHDRAWAL(CONT SUBST) Enoxaparin Sodium 40 mg 01/28/19 10:00 01/28/19 09:04 Lovenox - SQ 40 mg DAILY JOHAN Administration Folic Acid 1 mg 01/27/19 21:58 01/28/19 09:04 Folic Acid - PO 1 mg DAILY JOHAN Administration Azithromycin 250 mg/ Dextrose 250 mls @ 250 mls/hr 01/28/19 10:00 01/28/19 09 :05 IVPB 250 mls/hr DAILY JOHAN Administration Sodium Chloride 1,000 mls @ 100 mls/hr 01/27/19 21:45 01/27/19 22:48 Normal Saline - IV 100 mls/hr ASDIR JOHAN Administration Levofloxacin 750 mg in 150 mls @ 150 mls/hr 01/28/19 10:00 01/28/19 09:04 Levaquin 750 Mg Premixed Ivpb - IVPB 150 mls/hr DAILY JOHAN Administration Protocol Vancomycin HCl 1,250 mg/ 250 mls @ 166.667 mls/hr 01/27/19 22:30 01/28/19 09: 36 Dextrose IVPB 166.667 mls/hr Q12H JOHAN Administration Protocol Insulin Aspart 1 vial 01/27/19 22:00 01/28/19 10:20 Novolog Vial Sliding Scale - SQ Not Given ACHS [facility] Protocol Thiamine HCl 100 mg 01/27/19 21:58 01/28/19 09:04 Vitamin B1 - PO 100 mg DAILY JOHAN Administration Home Medications Medication Instructions Recorded Albuterol Sulfate Inhaler - 1 - 2 inh PO Q4H PRN 05/05/18 [Ventolin Hfa Inhaler -] Beclomethasone Dipropionate [Qvar 10.6 gm IH BID 05/05/18 Redihaler] Bictegrav/Emtricit/Tenofov Ala 1 each PO DAILY 01/27/19 [Biktarvy 50-200-25 mg Tablet] Metformin HCl [Glucophage] 500 mg PO BID 01/27/19 Quetiapine Fumarate [Seroquel -] 25 mg PO HS 01/27/19 CT of the chest without contrast: Bl upper and lower lobe infiltrates, mild lower lobe bronchiectasis. also several bl upper and lower lobe spiculated nodular opacities which maybe on the basis of multifocal primary neoplastic dz. Assessment and plan: Patient is a 58yo female with Pmhx of HIV on Biktarvy (unknown CD4 count and Viral load), depression, schizoaffective disorder, substance abuse (cocaine and alcohol), DM on metformin, presents from [facility] for having a productive cough with a fever of 102 and is admitted for pneumonia #Sepsis due to Pneumonia cannot r/o opportunistic infxn vs HAP vs CAP vs r/o TB , will continue Zithromax and Rocephin discussed with ID, Afb ordered, Respiratory isolation #Spiculated nodular opacities r/o neoplasm vs TB vs opportunistic infxn; Pulmonary consulted- Dr. Cassidy TB testing- Quantiferon ordered #HIV: CD4 count and viral load; UA ordered #Anemia: monitor H/H #Alcohol withdrawal: on Librium protocol ; thiamine , folic acid Fall precaution DVT Px: Lovenox Visit type - Emergency Visit Emergency Visit: Yes ED Registration Date: 01/27/19 Care time: The patient presented to the Emergency Department on the above date and was hospitalized for further evaluation of their emergent condition. - New Patient This patient is new to me today: Yes Date on this admission: 01/28/19 - Critical Care Critical Care patient: No - Discharge Referral Referred to [facility] Med P.C.: No
[2019-01-28] MEDS ORDERED: VANCOMYCIN 1,250 MG in DEXTROSE 5%-WATER - 250 ML IVPB SCH (13:45)
--- NOTE | 2019-01-28 14:00 | CON.PULM ---
Consult Consult Specialty:: PULMONARY Referred by:: Dr Cotter Reason for Consultation:: pneumonia - History of Present Illness Chief Complaint: fever History of Present Illness: 58yo female with h/o HIV, polysubstance abuse, DM, schizoaffective disorder who was transferred from [facility] for fevers and cough. Reports fevers x 3 days, cough productive of white sputum. No chest pain or palpitations. CT chest done showing bilateral nodular infiltrates. She does not know her CD4 count. Denies history or contact with tuberculosis. Has been hospitalized twice for pneumonia in the past. - History Source History Provided By: Patient, Medical Record Limitations to Obtaining History: Poor Historian - Smoking History Smoking history: Current every day smoker Have you smoked in the past 12 months: Yes Aproximately how many cigarettes per day: 5 Home Medications - Allergies Allergies/Adverse Reactions: Allergies Allergy/AdvReac Type Severity Reaction Status Date / Time Penicillins Allergy Verified 01/27/19 17:16 apple AdvReac Verified 01/27/19 17:16 apple juice AdvReac Uncoded 01/27/19 17:16 - Home Medications Home Medications: Ambulatory Orders Albuterol Sulfate Inhaler - [Ventolin Hfa Inhaler -] 1 - 2 inh PO Q4H PRN Beclomethasone Dipropionate [Qvar Redihaler] 10.6 gm IH BID 05/05/18 Bictegrav/Emtricit/Tenofov Ala [Biktarvy 50-200-25 mg Tablet] 1 each PO DAILY Metformin HCl [Glucophage] 500 mg PO BID 01/27/19 Quetiapine Fumarate [Seroquel -] 25 mg PO HS 01/27/19 Review of Systems - Review of Systems Constitutional: reports: Fever, Weakness. denies: Chills Eyes: denies: Recent Change in Vision HENT: denies: Nasal Congestion, Throat Pain Neck: denies: Stiffness, Tenderness Cardiovascular: denies: Chest Pain, Shortness of Breath Respiratory: reports: Cough. denies: Hemoptysis, Wheezing Gastrointestinal: denies: Abdominal Pain, Nausea, Vomiting Genitourinary: denies: Dysuria, Hematuria Neurological: denies: Dizziness, Headache Endocrine: denies: Unexplained Weight Loss Physical Exam Vital Sings: Vital Signs Temperature 99.5 F 01/28/19 07:22 Pulse Rate 67 11/23/19 10:00 Respiratory Rate 18 01/28/19 10:00 Blood Pressure 100/55 L 01/28/19 10:00 O2 Sat by Pulse Oximetry (%) 99 01/28/19 10:00 Constitutional: Yes: Calm Eyes: Yes: Conjunctiva Clear, EOM Intact HENT: Yes: Atraumatic, Normocephalic Neck: Yes: Supple, Trachea Midline Cardiovascular: Yes: Regular Rate and Rhythm Respiratory: Yes: Diminished, Poor Air Entry ...Clubbing: No Gastrointestinal: Yes: Normal Bowel Sounds, Soft. No: Tenderness Edema: No Labs: CBC, BMP 01/28/19 05:50 01/28/19 05:50 Imaging - Results Chest X-ray: Report Reviewed, Image Reviewed Cat Scan: Report Reviewed, Image Reviewed (bilateral nodular infiltrates) Problem List - Problems (1) Pneumonia Code(s): J18.9 - PNEUMONIA, UNSPECIFIED ORGANISM Qualifiers: Pneumonia type: due to unspecified organism Laterality: bilateral Lung location: unspecified part of lung Qualified Code(s): J18.9 - Pneumonia, unspecified organism Assessment/Plan Pneumonia HIV DM Schizoaffective Disorder Polysubstance Abuse - sputum cultures for C&S, AFB, fungus - send PCP smear - send CD4 count - ID eval - if sputum is unrevealing, will need bronchoscopy/BAL - DVT prophylaxis Thank you for this consult Talon Zhu MD
--- NOTE | 2019-01-28 16:20 | DS ---
Physical Exam: SUBJECTIVE: Patient seen and examined Patient eloped from the Ed. OBJECTIVE: Vital Signs Temperature 99.5 F 01/28/19 07:22 Pulse Rate 67 01/28/19 10:00 Respiratory Rate 18 01/28/19 10:00 Blood Pressure 100/55 L 01/28/19 10:00 O2 Sat by Pulse Oximetry (%) 99 01/28/19 10:00 GENERAL: The patient is awake, alert, and fully oriented, in no acute distress. HEAD: Normal with no signs of trauma. EYES: PERRL, extraocular movements intact, sclera anicteric, conjunctiva clear. ENT: Ears normal, oropharynx clear without exudates, moist mucous membranes. NECK: Trachea midline, full range of motion, supple. LUNGS: decreased BS at the bases , no wheezes, no crackles, no accessory muscle use. HEART: Regular rate and rhythm, S1, S2 without murmur, rub or gallop. ABDOMEN: Soft, nontender, nondistended, normoactive bowel sounds, no guarding, no rebound, no hepatosplenomegaly, no masses. EXTREMITIES: 2+ pulses, warm, well-perfused, no edema. NEUROLOGICAL: Cranial nerves II through XII grossly intact. Normal speech, gait not observed. PSYCH: looks disshelfed. SKIN: Warm, dry, normal turgor, no rashes or lesions noted Laboratory Results - last 24 hr 01/27/19 01/27/19 01/27/19 18:15 18:15 18:33 WBC 9.9 RBC 4.21 Hgb 10.5 L Hct 31.6 L MCV 75.2 L MCH 25.0 L MCHC 33.2 RDW 14.7 Plt Count 357 D MPV 7.5 D Absolute Neuts (auto) 6.1 Neutrophils % 61.7 Lymphocytes % 28.8 Monocytes % 8.9 Eosinophils % 0.2 Basophils % 0.4 Nucleated RBC % 0 Sodium 134 L Potassium 3.2 L Chloride 100 Carbon Dioxide 29 Anion Gap 4 L BUN 9.8 Creatinine 0.9 Est GFR (CKD-EPI)AfAm 82.26 Est GFR (CKD-EPI)NonAf 70.98 POC Glucometer Random Glucose 100 Calcium 8.6 Phosphorus Magnesium 1.9 Iron 27 L TIBC 214 L Iron Saturation 12 L Unsaturated IBC 187 L Total Bilirubin 0.4 AST 22 ALT 9 L Alkaline Phosphatase 82 Total Protein 8.9 H Albumin 2.9 L Urine Color Urine Appearance Urine pH Ur Specific [place] Urine Protein Urine Glucose (UA) Urine Ketones Urine Blood Urine Nitrite Urine Bilirubin Urine Urobilinogen Ur Leukocyte Esterase Urine WBC (Auto) Urine RBC (Auto) Urine Casts (Auto) U Pathogenic Cast Auto U Epithel Cells (Auto) Urine Bacteria (Auto) Influenza A (Rapid) Negative Influenza B (Rapid) Negative 01/27/19 01/28/19 01/28/19 22:50 05:50 05:50 WBC 5.4 RBC 4.27 Hgb 10.5 L Hct 32.3 L MCV 75.7 L MCH 24.7 L MCHC 32.6 RDW 14.4 Plt Count 304 MPV 8.1 Absolute Neuts (auto) 3.0 Neutrophils % 55.9 Lymphocytes % 30.7 Monocytes % 12.1 H Eosinophils % 0.5 D Basophils % 0.8 Nucleated RBC % 0 Sodium 137 Potassium 3.4 L Chloride 105 Carbon Dioxide 29 Anion Gap 4 L BUN 7.0 Creatinine 0.7 Est GFR (CKD-EPI)AfAm 111.47 Est GFR (CKD-EPI)NonAf 96.18 POC Glucometer Random Glucose 86 Calcium 8.6 Phosphorus 2.8 Magnesium 2.1 Iron TIBC Iron Saturation Unsaturated IBC Total Bilirubin 0.5 AST 17 ALT 7 L Alkaline Phosphatase 76 Total Protein 8.2 Albumin 2.6 L Urine Color Dk yellow Urine Appearance Turbid Urine pH 6.0 Ur Specific [place] 1.035 Urine Protein 2+ H Urine Glucose (UA) Negative Urine Ketones Trace H Urine Blood Negative Urine Nitrite Negative Urine Bilirubin Negative Urine Urobilinogen 1.0 Ur Leukocyte Esterase Trace Urine WBC (Auto) 12 Urine RBC (Auto) 1 Urine Casts (Auto) 54 U Pathogenic Cast Auto 0 U Epithel Cells (Auto) 8.1 Urine Bacteria (Auto) 67.6 Influenza A (Rapid) Influenza B (Rapid) 01/28/19 01/28/19 01/28/19 07:23 10:12 14:42 WBC RBC Hgb Hct MCV MCH MCHC RDW Plt Count MPV Absolute Neuts (auto) Neutrophils % Lymphocytes % Monocytes % Eosinophils % Basophils % Nucleated RBC % Sodium Potassium Chloride Carbon Dioxide Anion Gap BUN Creatinine Est GFR (CKD-EPI)AfAm Est GFR (CKD-EPI)NonAf POC Glucometer 86 85 108 Random Glucose Calcium Phosphorus Magnesium Iron TIBC Iron Saturation Unsaturated IBC Total Bilirubin AST ALT Alkaline Phosphatase Total Protein Albumin Urine Color Urine Appearance Urine pH Ur Specific [place] Urine Protein Urine Glucose (UA) Urine Ketones Urine Blood Urine Nitrite Urine Bilirubin Urine Urobilinogen Ur Leukocyte Esterase Urine WBC (Auto) Urine RBC (Auto) Urine Casts (Auto) U Pathogenic Cast Auto U Epithel Cells (Auto) Urine Bacteria (Auto) Influenza A (Rapid) Influenza B (Rapid) Date of Admission:01/27/19 Date of Discharge: 01/28/19 CT of the chest without contrast: Bl upper and lower lobe infiltrates, mild lower lobe bronchiectasis. also several bl upper and lower lobe spiculated nodular opacities which maybe on the basis of multifocal primary neoplastic dz. HOSPITAL COURSE: Patient is a 58yo female with Pmhx of HIV on Biktarvy (unknown CD4 count and Viral load), depression, schizoaffective disorder, substance abuse (cocaine and alcohol), DM on metformin, presents from [facility] for having a productive cough with a fever of 102 and is admitted for pneumonia #Sepsis due to Pneumonia cannot r/o opportunistic infxn vs HAP vs CAP vs r/o TB , will continue Zithromax and Rocephin discussed with ID, Afb ordered, Respiratory isolation #Spiculated nodular opacities r/o neoplasm vs TB vs opportunistic infxn; Pulmonary consulted- Dr. Cassidy TB testing- Quantiferon ordered #HIV: CD4 count and viral load; UA ordered #Anemia: monitor H/H #Alcohol withdrawal: on Librium protocol ; thiamine , folic acid Fall precaution DVT Px: Lovenox Minutes to complete discharge: 35 Discharge Summary Problems reviewed: Yes Reason For Visit: PNEUMONIA Current Active Problems Alcohol dependence (Chronic) Cocaine dependence (Chronic) Condition: Stable - Instructions Referrals: Cisco Muñoz MD [Primary Care Provider] - Disposition: ELOPED - Home Medications Comprehensive Discharge Medication List: Ambulatory Orders Albuterol Sulfate Inhaler - [Ventolin Hfa Inhaler -] 1 - 2 inh PO Q4H PRN Beclomethasone Dipropionate [Qvar Redihaler] 10.6 gm IH BID 05/05/18 Bictegrav/Emtricit/Tenofov Ala [Biktarvy 50-200-25 mg Tablet] 1 each PO DAILY Metformin HCl [Glucophage] 500 mg PO BID 01/27/19 Quetiapine Fumarate [Seroquel -] 25 mg PO HS 01/27/19 This patient is new to me today: Yes Date on this admission: 01/28/19 Emergency Visit: Yes ED Registration Date: 01/27/19 Care time: The patient presented to the Emergency Department on the above date and was hospitalized for further evaluation of their emergent condition. Critical Care patient: No - Discharge Referral Referred to [facility] No
--- NOTE | 2019-01-28 17:55 | EKG ---
Test Reason : Blood Pressure : / mmHG Vent. Rate : 073 BPM Atrial Rate : 073 BPM P-R Int : 150 ms QRS Dur : 098 ms QT Int : 402 ms P-R-T Axes : 055 050 047 degrees QTc Int : 442 ms NORMAL SINUS RHYTHM INCOMPLETE RIGHT BUNDLE BRANCH BLOCK BORDERLINE ECG WHEN COMPARED WITH ECG OF 05-MAY-2018 14:09, NO SIGNIFICANT CHANGE WAS FOUND Confirmed by MD Roya, Abdirashid ([id number]) on 01/28/2019 5:54:38 PM Referred By: Confirmed By:Abdirashid Pryor MD
[2019-01-29] MEDS ORDERED: chlordiazePOXIDE HCL 10 MG CAPSULE PO PRN
[2019-01-29] MEDS ORDERED: chlordiazePOXIDE HCL 10 MG CAPSULE PO SCH (05:00)
[2019-01-30] MEDS ORDERED: chlordiazePOXIDE HCL 10 MG CAPSULE PO SCH (05:00)
[2019-01-31] MEDS ORDERED: chlordiazePOXIDE HCL 10 MG CAPSULE PO ONE (05:00)
== END 2019-01-28 13:49 | disposition left against medical advice (07) | DRG 720 ==
LOC: JER 17:01 → JERBED 20:17
PROVIDERS: ADMIT Internal Medicine; ATTEND Internal Medicine
PROC: HZ2ZZZZ Detoxification Services for Substance Abuse Treatment (ICD-10-PCS; principal; 2019-01-27)
DX: A41.89 Other specified sepsis (principal); J18.9 Pneumonia, unspecified organism; J45.909 Unspecified asthma, uncomplicated; E11.9 Type 2 diabetes mellitus without complications; Z21 Asymptomatic human immunodeficiency virus [HIV] infection status; F23 Brief psychotic disorder; F32.9 Major depressive disorder, single episode, unspecified; D64.9 Anemia, unspecified; F10.230 Alcohol dependence with withdrawal, uncomplicated; F19.10 Other psychoactive substance abuse, uncomplicated; J47.9 Bronchiectasis, uncomplicated; Z88.0 Allergy status to penicillin; F14.20 Cocaine dependence, uncomplicated; D48.9 Neoplasm of uncertain behavior, unspecified; I95.9 Hypotension, unspecified; A15.9 Respiratory tuberculosis unspecified
CPT/HCPCS: 36415; 71046-TC-FY; 71250-TC; 80053; 81003; 82962; 83540; 83550; 83735; 84100; 85025; 86480; 87040; 87086; 87389; 87804; 93005; 93010; 99285-25; J7030

== ENCOUNTER 2019-02-07 18:50 | Inpatient (IN) | payer OTHER ==
[2019-02-07 20:47] VITALS: BMI 18.8
--- NOTE | 2019-02-07 23:39 | HP ---
CIWA Score - Admission Criteria [facility]ASAS Guidelines: Admission for Medically Managed Detox: Requires at least one of the followin. CIWA greater than 12 2. Seizures within the past 24 hours 3. Delirium tremens within the past 24 hours 4. Hallucinations within the past 24 hours 5. Acute intervention needed for co occurring medical disorder 6. Acute intervention needed for co occurring psychiatric disorder 7. Severe withdrawal that cannot be handled at a lower level of care (continued vomiting, continued diarrhea, abnormal vital signs) requiring intravenous medication and/or fluids 8. Admitting History and Physical - Smoking History Smoking history: Current every day smoker Have you smoked in the past 12 months: Yes Aproximately how many cigarettes per day: 5 - Alcohol/Substance Use Hx Alcohol Use: Yes Admission ROS [facility] Chief Complaint: Seeking admission to Rehab Allergies/Adverse Reactions: Allergies Allergy/AdvReac Type Severity Reaction Status Date / Time Penicillins Allergy Verified 02/07/19 20:37 apple AdvReac Verified 02/07/19 20:37 apple juice AdvReac Uncoded 02/07/19 20:37 History of Present Illness: 58 years old female with a long history of alcohol and cocaine dependence is seeking admission to Rehab. Patient reports that this is her first admission to Rehab. She reports medical history of DM Type 2, HIV +, asthma and psych history of Schizoaffective disorder and depression. She denies suicidal ideation at this time Exam Limitations: No Limitations - Ebola screening Have you traveled outside of the country in the last 21 days: No (N) Have you had contact with anyone from an Ebola affected area: No Do you have a fever: No - Review of Systems Constitutional: No Symptoms Reported EENT: reports: No Symptoms Reported Respiratory: reports: No Symptoms reported Cardiac: reports: No Symptoms Reported GI: reports: No Symptoms Reported : reports: No Symptoms Reported Musculoskeletal: reports: No Symptoms Reported Integumentary: reports: No Symptoms Reported Neuro: reports: No Symptoms reported Endocrine: reports: No Symptoms Reported Hematology: reports: No Symptoms Reported Psychiatric: reports: No Sypmtoms Reported, Mood/Affect Appropiate, Orientated x3 Other Systems: Reviewed and Negative Patient History - Patient Medical History Hx Anemia: No Hx Asthma: Yes (ON FLOVENT) Hx Chronic Obstructive Pulmonary Disease (COPD): No Hx Cardiac Disorders: No Hx Congestive Heart Failure: No Hx Hypertension: No Hx Hypercholesterolemia: No HX Cerebrovascular Accident: No Hx Seizures: No Hx Diabetes: Yes (DIET CONTROLLED) Hx Gastrointestinal Disorders: No Hx Genitourinary Disorders: No Hx Sexually Transmitted Disorders: Yes (HIV) Hx Renal Disease (ESRD): No Hx Depression: Yes Hx Suicide Attempt: No Hx Schizophrenia: Yes (SCHIZOAFFECTIVE DISORDER) - Patient Surgical History Past Surgical History: Yes Hx Neurologic Surgery: No Hx Cataract Extraction: No Hx Cardiac Surgery: No Hx Lung Surgery: No Hx Breast Surgery: No Hx Breast Biopsy: No Hx Abdominal Surgery: No Hx Appendectomy: No Hx Cholecystectomy: No Hx Genitourinary Surgery: No Hx Section: Yes (1978) Hx Orthopedic Surgery: No Anesthesia Reaction: No - PPD History Previous Implant?: Yes (PPD POSITIVE) Documented Results: Positive w/o proof Implanted On Prior [facility] Admission?: No PPD to be Administered?: No - Reproductive History Patient is a Female of Child Bearing Age (11 -55 yrs old): Yes LMP comment: last menstruation at age 46 Patient : No - Smoking Cessation Smoking history: Current every day smoker Have you smoked in the past 12 months: Yes Aproximately how many cigarettes per day: 5 Hx Chewing Tobacco Use: No Initiated information on smoking cessation: Yes 'Breaking Loose' booklet given: 02/07/19 - Substance & Tx. History Hx Alcohol Use: Yes Hx Substance Use: Yes Substance Use Type: Alcohol, Cocaine Hx Substance Use Treatment: Yes ([facility]) - Substances abused Cocaine Substance route: Smoking Frequency: 1-2 times per week Amount used: $200-300 Age of first use: 26 Date of last use: 02/06/19 Alcohol Substance route: Oral Frequency: Daily Amount used: 10 -15 nips of vodka & 15 beers Age of first use: 26 Date of last use: 02/06/19 Admission Physical Exam BHS - Vital Signs Vital Signs: Vital Signs - 24 hr 02/07/19 20:41 Temperature 98.0 F Pulse Rate 76 Respiratory 20 Rate Blood Pressure 101/69 - Physical General Appearance: Yes: Within Normal Limits HEENTM: Yes: Within Normal Limits, EOMI, Normal ENT Inspection, Normal Voice, DORIS Respiratory: Yes: Lungs Clear, Normal Breath Sounds, No Respiratory Distress Neck: Yes: Within Normal Limits Breast: Yes: Breast Exam Deferred Cardiology: Yes: Regular Rhythm, Regular Rate Abdominal: Yes: Normal Bowel Sounds, Soft Genitourinary: Yes: Within Normal Limits Back: Yes: Normal Inspection Musculoskeletal: Yes: Within Normal Limits Extremities: Yes: Within Normal Limits Neurological: Yes: Within Normal Limits Integumentary: Yes: Within Normal Limits, Warm Lymphatic: Yes: Within Normal Limits - Diagnostic (1) Nicotine dependence Current Visit: Yes Status: Chronic Qualifiers: Nicotine product type: cigarettes Substance use status: uncomplicated Qualified Code(s): F17.210 - Nicotine dependence, cigarettes, uncomplicated (2) Alcohol dependence Current Visit: Yes Status: Chronic Qualifiers: Substance use status: uncomplicated Qualified Code(s): F10.20 - Alcohol dependence, uncomplicated (3) Asthma Current Visit: Yes Status: Chronic Qualifiers: Asthma severity: mild Asthma persistence: intermittent Asthma complication type: unspecified Qualified Code(s): J45.20 - Mild intermittent asthma, uncomplicated (4) Cocaine dependence Current Visit: Yes Status: Chronic Qualifiers: Substance use status: uncomplicated Qualified Code(s): F14.20 - Cocaine dependence, uncomplicated (5) Diabetes mellitus type 2 in nonobese Current Visit: Yes Status: Chronic (6) HIV (human immunodeficiency virus infection) Current Visit: Yes Status: Chronic Qualifiers: HIV symptom status: unspecified Qualified Code(s): B20 - Human immunodeficiency virus [HIV] disease Cleared for Admission S - Detox or Rehab [facility] Level of Care: Observation Bed Claeared for Rehab Admission: Yes Breathalyzer - Breathalyzer Breathalyzer: 0 Urine Drug Screen - Test Device Lot number: [id number] Expiration date: 10/05/20 - Control Is test valid?: Yes - Results Drug screen NEGATIVE: No Urine drug screen results: KRISTY-Cocaine, BZO-Benzodiazepines Inpatient Rehab Admission - Rehab Decision to Admit Inpatient rehab admission?: Yes - Initial Determination Are CD services needed?: No Free of communicable disease: No Not in need of hospitalization: Yes - Rehab Admission Criteria Previous failed treatment: Yes Poor recovery environment: Yes Comorbidities: Yes Lacks judgement: No Patient is meeting Inpatient Rehab admission criteria:: Yes
[2019-02-07] MEDS ORDERED: PATIENT'S OWN MEDICATION (NON-FORMULARY) (Levofloxacin 750 MG) PO SCH (23:45)
[2019-02-07] MEDS ORDERED: MENTHOL/PHENOL 1 EACH UD MM PRN (23:51)
[2019-02-07] MEDS ORDERED: LOPERAMIDE HCL 2 MG CAPSULE PO PRN (23:51)
[2019-02-07] MEDS ORDERED: MAGNESIUM CITRATE 300 ML BOTTLE PO PRN (23:51)
[2019-02-07] MEDS ORDERED: MAGNESIUM HYDROX 2400MG/30ML ORAL SUSPENSION 30 ML CUP PO PRN (23:51)
[2019-02-07] MEDS ORDERED: MAG HYDROX/AL HYDROX/SIMETH 30 ML UNIT-DOSE CUP PO PRN (23:51)
[2019-02-07] MEDS ORDERED: NICOTINE POLACRILEX 2 MG GUM BUC PRN (23:51)
[2019-02-07] MEDS ORDERED: guaiFENesin 200 MG/10 ML 10 ML UNIT-DOSE CUPS PO PRN (23:51)
[2019-02-07] MEDS ORDERED: P-EPHED 60MG/TRIPROLIDI 2.5MG TABLET PO PRN (23:51)
[2019-02-07] MEDS ORDERED: ALBUTEROL SO4 8 GM HFA INHALER IH PRN (23:53)
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
[2019-02-08] MEDS ORDERED: metFORMIN HCL 500 MG TABLET (FP) PO SCH (10:00)
[2019-02-08] MEDS ORDERED: LEVOFLOXACIN PO SCH (10:00)
[2019-02-08] MEDS: NICOTINE 14 MG/24 HOURS TOPICAL PATCH TD SCH (10:14)
[2019-02-08] MEDS: PRENATAL VITAMINS W/ FOLIC ACID TABLET (FP) PO SCH (10:14)
[2019-02-08 10:37] LABS: EPI CELLS 8.5 /HPF (0-5/HPF); HYALINE CASTS 6 /lpf (0-8); PH,URINE 5.5 (5.0-8.0); URINE APPEARANCE CLEAR; URINE BACTERIA 90.7 /hpf (NEGATIVE); URINE BILIRUBIN NEGATIVE (NEGATIVE); URINE COLOR YELLOW; URINE GLUCOSE (UA) NEGATIVE (NEGATIVE); URINE KETONE NEGATIVE (NEGATIVE); URINE LEUK ESTERASE TRACE (NEGATIVE); URINE NITRITE NEGATIVE (NEGATIVE); URINE PROTEIN 1+ (NEGATIVE); URINE RBC 1 /hpf (0-4); URINE UROBILINOGEN 0.2 mg/dL (0.2-1.0); URINE WBC 10 /hpf (0-5)
[2019-02-08 11:19] LABS: URINE CRYSTALS CALCIUM OXALATE=1+ /hpf
[2019-02-08] MEDS: LEVOFLOXACIN PO SCH (11:34)
[2019-02-08] MEDS: BICTEGRAV/EMTRICIT/TENOFOV (BIKTARVY) 50-200-25 MG TABLET PO SCH (15:31)
[2019-02-08] MEDS ORDERED: PT OWN MED DRAWER 7, Y5N ONE (16:05)
[2019-02-08] MEDS: metFORMIN HCL 500 MG TABLET (FP) PO SCH (17:03)
[2019-02-08 17:47] LABS: HEMATOCRIT 31.6 % (32.4-45.2); HEMOGLOBIN 10.1 GM/dL (10.7-15.3); MCH 24.4 pg (25.7-33.7); MCHC 31.8 g/dl (32.0-36.0); MEAN CELL VOLUME 76.7 fl (80-96); MEAN PLT VOLUME 7.8 fl (7.5-11.1); PLATELET COUNT 279 K/MM3 (134-434); RBC 4.13 M/mm3 (3.60-5.2); RDW 15.7 % (11.6-15.6); WHITE BLOOD COUNT 4.1 K/mm3 (4.0-10.0)
[2019-02-08 17:57] LABS: ALBUMIN 2.8 g/dl (3.4-5.0); BILIRUBIN,TOTAL 0.3 mg/dL (0.2-1); BLOOD UREA NITROGEN 15.7 mg/dL (7-18); CALCIUM 8.8 mg/dL (8.5-10.1); CREATININE 0.9 mg/dL (0.55-1.3); POTASSIUM 3.7 mmol/L (3.5-5.1); TOT PROT 8.4 g/dl (6.4-8.2)
[2019-02-08] MEDS: MOMETASONE FUROATE 220 MCG/IH INHALER IH SCH (21:48)
[2019-02-08] MEDS: THIAMINE HCL 100 MG TABLET (FP) PO SCH (21:49)
[2019-02-08] MEDS: MELATONIN 5 MG TABLETS PO PRN (21:49)
[2019-02-09] MEDS ORDERED: PT OWN MED DRAWER 7, Y5N ONE ×2 (03:20→08:50)
[2019-02-09] MEDS: LEVOFLOXACIN PO SCH (06:26)
[2019-02-09] MEDS: BICTEGRAV/EMTRICIT/TENOFOV (BIKTARVY) 50-200-25 MG TABLET PO SCH (08:14)
[2019-02-09] MEDS: metFORMIN HCL 500 MG TABLET (FP) PO SCH ×2 (08:15→17:30)
[2019-02-09] MEDS: NICOTINE 14 MG/24 HOURS TOPICAL PATCH TD SCH (10:07)
[2019-02-09] MEDS: PRENATAL VITAMINS W/ FOLIC ACID TABLET (FP) PO SCH (10:07)
[2019-02-09] MEDS: MOMETASONE FUROATE 220 MCG/IH INHALER IH SCH ×2 (10:08→22:05)
--- NOTE | 2019-02-09 10:45 | EKG ---
Test Reason : Blood Pressure : / mmHG Vent. Rate : 061 BPM Atrial Rate : 061 BPM P-R Int : 184 ms QRS Dur : 096 ms QT Int : 422 ms P-R-T Axes : 023 043 039 degrees QTc Int : 424 ms NORMAL SINUS RHYTHM INCOMPLETE RIGHT BUNDLE BRANCH BLOCK BORDERLINE ECG WHEN COMPARED WITH ECG OF 27-JAN-2019 21:20, NO SIGNIFICANT CHANGE WAS FOUND Confirmed by HUMBERTO LANGSTON MD ([id number]) on 02/09/2019 10:45:11 AM Referred By: Confirmed By:HUMBERTO LANGSTON MD
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
[2019-02-09] MEDS: QUEtiapine FUMARATE 25 MG TABLET (FP) PO SCH (22:06)
[2019-02-09] MEDS: THIAMINE HCL 100 MG TABLET (FP) PO SCH (22:06)
[2019-02-10] MEDS ORDERED: PT OWN MED DRAWER 7, Y5N ONE ×2 (06:21→21:02)
[2019-02-10] MEDS: LEVOFLOXACIN PO SCH (06:35)
[2019-02-10] MEDS: metFORMIN HCL 500 MG TABLET (FP) PO SCH ×2 (08:20→16:41)
[2019-02-10] MEDS: BICTEGRAV/EMTRICIT/TENOFOV (BIKTARVY) 50-200-25 MG TABLET PO SCH (08:20)
[2019-02-10] MEDS: NICOTINE 14 MG/24 HOURS TOPICAL PATCH TD SCH (10:16)
[2019-02-10] MEDS: MOMETASONE FUROATE 220 MCG/IH INHALER IH SCH ×2 (10:16→21:30)
[2019-02-10] MEDS: PRENATAL VITAMINS W/ FOLIC ACID TABLET (FP) PO SCH (10:16)
[2019-02-10] MEDS: THIAMINE HCL 100 MG TABLET (FP) PO SCH (21:30)
[2019-02-10] MEDS: QUEtiapine FUMARATE 25 MG TABLET (FP) PO SCH (21:30)
[2019-02-11] MEDS ORDERED: PT OWN MED DRAWER 7, Y5N ONE (06:19)
[2019-02-11] MEDS: metFORMIN HCL 500 MG TABLET (FP) PO SCH ×2 (08:25→16:53)
[2019-02-11] MEDS: BICTEGRAV/EMTRICIT/TENOFOV (BIKTARVY) 50-200-25 MG TABLET PO SCH (08:40)
[2019-02-11] MEDS: PRENATAL VITAMINS W/ FOLIC ACID TABLET (FP) PO SCH (10:04)
[2019-02-11] MEDS: NICOTINE 14 MG/24 HOURS TOPICAL PATCH TD SCH (10:05)
[2019-02-11] MEDS: MOMETASONE FUROATE 220 MCG/IH INHALER IH SCH ×2 (10:05→21:35)
[2019-02-11] MEDS: THIAMINE HCL 100 MG TABLET (FP) PO SCH (21:35)
[2019-02-11] MEDS: QUEtiapine FUMARATE 25 MG TABLET (FP) PO SCH (21:35)
[2019-02-12] MEDS ORDERED: PT OWN MED DRAWER 7, Y5N ONE ×2 (06:03→07:56)
[2019-02-12] MEDS: BICTEGRAV/EMTRICIT/TENOFOV (BIKTARVY) 50-200-25 MG TABLET PO SCH (07:54)
[2019-02-12] MEDS: metFORMIN HCL 500 MG TABLET (FP) PO SCH ×2 (07:54→16:30)
[2019-02-12] MEDS: NICOTINE 14 MG/24 HOURS TOPICAL PATCH TD SCH (10:36)
[2019-02-12] MEDS: MOMETASONE FUROATE 220 MCG/IH INHALER IH SCH ×2 (10:36→21:34)
[2019-02-12] MEDS: PRENATAL VITAMINS W/ FOLIC ACID TABLET (FP) PO SCH (10:36)
[2019-02-12] MEDS: QUEtiapine FUMARATE 25 MG TABLET (FP) PO SCH (21:33)
[2019-02-12] MEDS: THIAMINE HCL 100 MG TABLET (FP) PO SCH (21:33)
[2019-02-12] MEDS: ACETAMINOPHEN 325 MG TABLET (FP) PO PRN (21:33)
[2019-02-13] MEDS: BICTEGRAV/EMTRICIT/TENOFOV (BIKTARVY) 50-200-25 MG TABLET PO SCH (08:00)
[2019-02-13] MEDS: metFORMIN HCL 500 MG TABLET (FP) PO SCH (08:00)
[2019-02-13] MEDS ORDERED: PT OWN MED DRAWER 7, Y5N ONE ×2 (08:02→08:50)
[2019-02-13] MEDS ORDERED: CHLORHEXIDINE GLUCONATE 0.12% 15ML CUP MM SCH (10:00)
[2019-02-13] MEDS: MOMETASONE FUROATE 220 MCG/IH INHALER IH SCH ×2 (10:08→21:26)
[2019-02-13] MEDS: PRENATAL VITAMINS W/ FOLIC ACID TABLET (FP) PO SCH (10:09)
[2019-02-13] MEDS: NICOTINE 14 MG/24 HOURS TOPICAL PATCH TD SCH (10:09)
[2019-02-13] MEDS ORDERED: COLLOIDAL OATMEAL 1 BAR EACH TP PRN (12:52)
[2019-02-13] MEDS: ACETAMINOPHEN 325 MG TABLET (FP) PO PRN (13:13)
[2019-02-13] MEDS: IBUPROFEN 400 MG TABLET (FP) PO PRN (18:19)
[2019-02-13] MEDS: CHLORHEXIDINE GLUCONATE 118 ML MOUTHWASH MM SCH (21:26)
[2019-02-13] MEDS: QUEtiapine FUMARATE 25 MG TABLET (FP) PO SCH (21:26)
[2019-02-13] MEDS: MELATONIN 5 MG TABLETS PO PRN (21:26)
[2019-02-13] MEDS: THIAMINE HCL 100 MG TABLET (FP) PO SCH (21:26)
[2019-02-14] MEDS ORDERED: PT OWN MED DRAWER 7, Y5N ONE ×4 (06:27→21:26)
[2019-02-14] MEDS: metFORMIN HCL 500 MG TABLET (FP) PO SCH (07:40)
[2019-02-14] MEDS: BICTEGRAV/EMTRICIT/TENOFOV (BIKTARVY) 50-200-25 MG TABLET PO SCH (08:50)
[2019-02-14] MEDS: PRENATAL VITAMINS W/ FOLIC ACID TABLET (FP) PO SCH (10:18)
[2019-02-14] MEDS: MOMETASONE FUROATE 220 MCG/IH INHALER IH SCH ×2 (10:19→21:24)
[2019-02-14] MEDS: CHLORHEXIDINE GLUCONATE 118 ML MOUTHWASH MM SCH ×2 (10:20→21:26)
[2019-02-14] MEDS: NICOTINE 14 MG/24 HOURS TOPICAL PATCH TD SCH (10:20)
[2019-02-14] MEDS ORDERED: MINERAL OIL/PETROLAT/WATER TOPICAL CREAM 113 GM JAR TP PRN (15:33)
[2019-02-14] MEDS: ACETAMINOPHEN 325 MG TABLET (FP) PO PRN (16:39)
[2019-02-14] MEDS: IBUPROFEN 400 MG TABLET (FP) PO PRN (19:09)
[2019-02-14] MEDS: THIAMINE HCL 100 MG TABLET (FP) PO SCH (21:24)
[2019-02-14] MEDS: MELATONIN 5 MG TABLETS PO PRN (21:24)
[2019-02-14] MEDS: QUEtiapine FUMARATE 25 MG TABLET (FP) PO SCH (21:24)
[2019-02-15] MEDS: metFORMIN HCL 500 MG TABLET (FP) PO SCH (06:31)
[2019-02-15] MEDS: BICTEGRAV/EMTRICIT/TENOFOV (BIKTARVY) 50-200-25 MG TABLET PO SCH (07:09)
[2019-02-15] MEDS ORDERED: PT OWN MED DRAWER 7, Y5N ONE ×2 (08:52→14:01)
[2019-02-15] MEDS: MOMETASONE FUROATE 220 MCG/IH INHALER IH SCH ×2 (09:49→21:40)
[2019-02-15] MEDS: NICOTINE 14 MG/24 HOURS TOPICAL PATCH TD SCH (09:50)
[2019-02-15] MEDS: PRENATAL VITAMINS W/ FOLIC ACID TABLET (FP) PO SCH (09:50)
[2019-02-15] MEDS: CHLORHEXIDINE GLUCONATE 118 ML MOUTHWASH MM SCH ×2 (09:51→21:40)
[2019-02-15] MEDS: THIAMINE HCL 100 MG TABLET (FP) PO SCH (21:38)
[2019-02-15] MEDS: QUEtiapine FUMARATE 25 MG TABLET (FP) PO SCH (21:39)
[2019-02-15] MEDS: ACETAMINOPHEN 325 MG TABLET (FP) PO PRN (21:39)
[2019-02-15] MEDS: MELATONIN 5 MG TABLETS PO PRN (21:39)
[2019-02-16] MEDS: metFORMIN HCL 500 MG TABLET (FP) PO SCH (07:03)
[2019-02-16] MEDS: BICTEGRAV/EMTRICIT/TENOFOV (BIKTARVY) 50-200-25 MG TABLET PO SCH (07:04)
[2019-02-16] MEDS: PRENATAL VITAMINS W/ FOLIC ACID TABLET (FP) PO SCH (09:57)
[2019-02-16] MEDS: MOMETASONE FUROATE 220 MCG/IH INHALER IH SCH ×2 (09:57→21:33)
[2019-02-16] MEDS: NICOTINE 14 MG/24 HOURS TOPICAL PATCH TD SCH (09:58)
[2019-02-16] MEDS: CHLORHEXIDINE GLUCONATE 118 ML MOUTHWASH MM SCH ×2 (09:58→21:32)
--- NOTE | 2019-02-16 11:39 | PN ---
S Progress Note (SOAP) Subjective: Patient with lesion on right corner of mouth; self-treating with toothpaste application, which she says soothe it.PMHx of HIV infection, taking Bictarvy. Objective: CBC, BMP 02/08/19 09:10 02/08/19 09:10 Vital Signs (72 hours) 02/14/19 02/14/19 02/15/19 00:30 03:30 00:30 Temperature Pulse Rate Respiratory 16 16 16 Rate Blood Pressure 02/15/19 02/15/19 02/16/19 03:30 07:35 00:30 Temperature 98.3 F Pulse Rate 64 Respiratory 16 18 16 Rate Blood Pressure 107/68 02/16/19 02/16/19 03:30 07:03 Temperature 97.1 F L Pulse Rate 67 Respiratory 16 18 Rate Blood Pressure 103/66 P/E General: no apparent distress HEENTM: normocephalic, open sore on right corner of mouth, no lesions in mouth. Neck: supple Heart: s1 s2 Lungs: clear 02/16/19 11:39 Assessment: apthous ulcer 02/16/19 11:41 Plan: nystatin/triamcinolone ointment ordered.
[2019-02-16] MEDS: NYSTATIN/TRIAMCINOLONE TOPICAL OINTMENT 15 GM TUBE TP SCH ×2 (12:45→21:35)
[2019-02-16] MEDS: ACETAMINOPHEN 325 MG TABLET (FP) PO PRN (17:59)
[2019-02-16] MEDS: THIAMINE HCL 100 MG TABLET (FP) PO SCH (21:30)
[2019-02-16] MEDS: MELATONIN 5 MG TABLETS PO PRN (21:31)
[2019-02-16] MEDS: QUEtiapine FUMARATE 25 MG TABLET (FP) PO SCH (21:31)
[2019-02-16] MEDS ORDERED: PT OWN MED DRAWER 7, Y5N ONE (21:34)
[2019-02-17 07:15] VITALS: BP 115/69; PULSE 70; TEMP 97.7
[2019-02-17] MEDS: BICTEGRAV/EMTRICIT/TENOFOV (BIKTARVY) 50-200-25 MG TABLET PO SCH (07:47)
[2019-02-17] MEDS: metFORMIN HCL 500 MG TABLET (FP) PO SCH (07:47)
[2019-02-17] MEDS: PRENATAL VITAMINS W/ FOLIC ACID TABLET (FP) PO SCH (09:25)
[2019-02-17] MEDS: NYSTATIN/TRIAMCINOLONE TOPICAL OINTMENT 15 GM TUBE TP SCH (09:26)
[2019-02-17] MEDS: NICOTINE 14 MG/24 HOURS TOPICAL PATCH TD SCH (09:27)
[2019-02-17] MEDS: MOMETASONE FUROATE 220 MCG/IH INHALER IH SCH (09:27)
--- NOTE | 2019-02-17 09:31 | DS ---
[facility] Rehab Discharge Summary - [facility] Rehab Discharge Summary Admission Date: 02/07/19 Discharge Date: 02/17/19 - History Present History: Alcohol dependence, Cocaine dependence Pertinent Past History: 58 years old female with a long history of alcohol and cocaine dependence. She reports medical history of DM Type 2, HIV +, asthma and psych history of Schizoaffective disorder and depression. She denies suicidal ideation at this time - Discharge Physical Exam Vital Signs: Vital Signs Temperature 97.7 F 02/17/19 07:15 Pulse Rate 70 02/17/19 07:15 Respiratory Rate 18 02/17/19 07:15 Blood Pressure 115/69 02/17/19 07:15 O2 Sat by Pulse Oximetry (%) Pertinent Admission Physical Exam Findings: Physical General Appearance: No apparent distress HEENTM: one apthous ulcer left corner of lips, poor dentition, normocephalic, DORIS Respiratory: Lungs Clear, Neck: supple, Cardiology: s1 s2 Abdominal: +Bowel Sounds, Soft Musculoskeletal: Full weight bearing, full ROM, steady gait Neurological: CN 2-12 intact - Treatment Discharge Condition: Outpatient referral accepted (Medically stable for discharge. Patient will return to [facility] for aftercare and primary car.) Hospital Course: patient attended groups, had 1:1 with counselor, was seen by the psychiatric service, and was adherent to her medication regimen and treatment plan. She was seen by medical service for a apthous ulcer, which was treated effectively. - Medication Discharge Medications: Ambulatory Orders Quetiapine Fumarate [Seroquel -] 25 mg PO HS 01/27/19 levoFLOXacin [Levaquin -] 750 mg PO DAILY 02/08/19 Albuterol Sulfate Inhaler - [Ventolin HFA Inhaler -] 1 - 2 inh PO Q4H PRN #1 inhaler 02/17/19 Beclomethasone Dipropionate [Qvar Redihaler] 10.6 gm IH BID #1 hfa.aeroba Bictegrav/Emtricit/Tenofov Ala [Biktarvy 50-200-25 mg Tablet] 1 each PO DAILY # 30 tablet 02/17/19 Lancets/Blood Glucose Strips [Fora [id number] Strp-Lnct] 1 each MC TID #90 combo..pkg 02/17/19 Metformin HCl [Glucophage] 500 mg PO BID #60 tablet 02/17/19 - Medication-Assisted Treatment (MAT) Medication-Assisted Treatment (MAT): No - Discharge Instructions Diet, activity, other medical instructions: Diet: as tolerated Activity: as tolerated Other medical instructions: Please follow up with aftercare referral. - Diagnosis (1) Alcohol dependence Current Visit: Yes Status: Chronic Qualifiers: Substance use status: uncomplicated Qualified Code(s): F10.20 - Alcohol dependence, uncomplicated (2) Cocaine dependence Current Visit: Yes Status: Chronic Qualifiers: Substance use status: uncomplicated Qualified Code(s): F14.20 - Cocaine dependence, uncomplicated - Follow-up Referral Minutes to complete discharge: 20 - AMA Did Patient Leave Against Medical Advice: No
== END 2019-02-17 09:53 | disposition home or self-care (01) | DRG 772 ==
LOC: YASAS 18:50 → Y3E 23:35
PROVIDERS: ADMIT Neuromusculoskeletal Medicine & OMM; ATTEND Neuromusculoskeletal Medicine & OMM
PROC: HZ42ZZZ Group Counseling for Substance Abuse Treatment, Cognitive-Behavioral (ICD-10-PCS; principal; 2019-02-07)
DX: F10.20 Alcohol dependence, uncomplicated (principal); F14.20 Cocaine dependence, uncomplicated; F17.210 Nicotine dependence, cigarettes, uncomplicated; F19.24 Other psychoactive substance dependence with psychoactive substance-induced mood disorder; F25.9 Schizoaffective disorder, unspecified; E11.9 Type 2 diabetes mellitus without complications; Z21 Asymptomatic human immunodeficiency virus [HIV] infection status; K12.0 Recurrent oral aphthae; J45.909 Unspecified asthma, uncomplicated; Z79.84 Long term (current) use of oral hypoglycemic drugs; Z88.0 Allergy status to penicillin; Z91.018 Allergy to other foods
CPT/HCPCS: 36415; 71046-TC-FY; 80053; 81003; 82962; 85027; 86593; 93005; 93010

== ENCOUNTER 2020-03-22 11:42 | Inpatient (IN) | payer OTHER ==
[2020-03-22] MEDS ORDERED: LOPERAMIDE HCL 2 MG CAPSULE PO PRN (12:43)
[2020-03-22] MEDS ORDERED: P-EPHED 60MG/TRIPROLIDI 2.5MG TABLET PO PRN (12:43)
[2020-03-22] MEDS ORDERED: MAGNESIUM HYDROX 2400MG/30ML ORAL SUSPENSION 30 ML CUP PO PRN (12:43)
[2020-03-22] MEDS ORDERED: ALBUTEROL SO4 HFA INHALER IH PRN (12:43)
[2020-03-22] MEDS ORDERED: guaiFENesin 200 MG/10 ML 10 ML UNIT-DOSE CUPS PO PRN (12:43)
[2020-03-22] MEDS ORDERED: MAG HYDROX/AL HYDROX/SIMETH 30 ML UNIT-DOSE CUP PO PRN (12:43)
[2020-03-22] MEDS ORDERED: ACETAMINOPHEN 325 MG TABLET (FP) PO PRN (12:43)
[2020-03-22] MEDS ORDERED: IBUPROFEN 400 MG TABLET (FP) PO PRN (12:43)
[2020-03-22] MEDS ORDERED: hydrOXYzine PAMOATE 25 MG CAPSULE (FP) PO PRN (12:43)
[2020-03-22] MEDS ORDERED: MAGNESIUM CITRATE 300 ML BOTTLE PO PRN (12:43)
[2020-03-22] MEDS ORDERED: MENTHOL/PHENOL 1 EACH UD MM PRN (12:43)
[2020-03-22] MEDS: metFORMIN HCL 500 MG TABLET (FP) PO SCH (16:28)
[2020-03-22] MEDS: NICOTINE POLACRILEX 2 MG GUM BUC PRN (19:44)
[2020-03-22] MEDS: MELATONIN 5 MG TABLETS PO SCH (21:31)
[2020-03-22] MEDS: THIAMINE HCL 100 MG TABLET (FP) PO SCH (21:31)
[2020-03-23] MEDS: metFORMIN HCL 500 MG TABLET (FP) PO SCH ×2 (06:11→18:00)
[2020-03-23] MEDS: BICTEGRAV/EMTRICIT/TENOFOV (BIKTARVY) 50-200-25 MG TABLET PO SCH (07:02)
[2020-03-23] MEDS: PRENATAL VITAMINS W/ FOLIC ACID TABLET (FP) PO SCH (09:50)
[2020-03-23] MEDS ORDERED: POTASSIUM CHLORIDE TABS 20 MEQ TABLET.ER (FP) PO SCH (10:00)
[2020-03-23] MEDS ORDERED: NICOTINE 7 MG/24 HOURS TOPICAL PATCH TD SCH (10:00)
[2020-03-23] MEDS ORDERED: MASKS NR ONE (19:51)
[2020-03-23] MEDS: THIAMINE HCL 100 MG TABLET (FP) PO SCH (21:42)
[2020-03-23] MEDS: MELATONIN 5 MG TABLETS PO SCH (21:42)
[2020-03-24] MEDS: metFORMIN HCL 500 MG TABLET (FP) PO SCH ×2 (07:20→16:44)
[2020-03-24] MEDS: BICTEGRAV/EMTRICIT/TENOFOV (BIKTARVY) 50-200-25 MG TABLET PO SCH (07:21)
[2020-03-24] MEDS: PRENATAL VITAMINS W/ FOLIC ACID TABLET (FP) PO SCH (10:12)
[2020-03-24] MEDS: THIAMINE HCL 100 MG TABLET (FP) PO SCH (21:34)
[2020-03-24] MEDS: MELATONIN 5 MG TABLETS PO SCH (21:34)
[2020-03-25] MEDS: metFORMIN HCL 500 MG TABLET (FP) PO SCH ×2 (06:09→16:25)
[2020-03-25] MEDS: PRENATAL VITAMINS W/ FOLIC ACID TABLET (FP) PO SCH (10:12)
[2020-03-25] MEDS: THIAMINE HCL 100 MG TABLET (FP) PO SCH (21:31)
[2020-03-25] MEDS: MELATONIN 5 MG TABLETS PO SCH (21:31)
[2020-03-26] MEDS: metFORMIN HCL 500 MG TABLET (FP) PO SCH ×2 (06:58→16:30)
[2020-03-26] MEDS: BICTEGRAV/EMTRICIT/TENOFOV (BIKTARVY) 50-200-25 MG TABLET PO SCH (07:01)
[2020-03-26] MEDS: PRENATAL VITAMINS W/ FOLIC ACID TABLET (FP) PO SCH (10:20)
[2020-03-26] MEDS: NICOTINE POLACRILEX 2 MG GUM BUC PRN (10:35)
[2020-03-26] MEDS ORDERED: COLLOIDAL OATMEAL 1 BAR EACH TP PRN (15:59)
[2020-03-26] MEDS: THIAMINE HCL 100 MG TABLET (FP) PO SCH (21:19)
[2020-03-26] MEDS: MELATONIN 5 MG TABLETS PO SCH (21:19)
[2020-03-27] MEDS: BICTEGRAV/EMTRICIT/TENOFOV (BIKTARVY) 50-200-25 MG TABLET PO SCH ×2 (02:06→07:06)
[2020-03-27] MEDS: metFORMIN HCL 500 MG TABLET (FP) PO SCH ×2 (06:16→16:39)
[2020-03-27] MEDS: NICOTINE POLACRILEX 2 MG GUM BUC PRN ×4 (06:34→16:39)
[2020-03-27] MEDS: PRENATAL VITAMINS W/ FOLIC ACID TABLET (FP) PO SCH (10:11)
[2020-03-27] MEDS: AMMONIUM LACTATE 12% LOTION 225 GM BOTTLE TP SCH (10:12)
[2020-03-27] MEDS: BACITRACIN 0.9 GM PACKET TP SCH ×2 (11:46→21:38)
[2020-03-27] MEDS: THIAMINE HCL 100 MG TABLET (FP) PO SCH (21:36)
[2020-03-27] MEDS: MELATONIN 5 MG TABLETS PO SCH (21:36)
[2020-03-28] MEDS: metFORMIN HCL 500 MG TABLET (FP) PO SCH (06:36)
[2020-03-28 07:11] VITALS: BP 103/64; PULSE 64; TEMP 97.5
[2020-03-28] MEDS: BICTEGRAV/EMTRICIT/TENOFOV (BIKTARVY) 50-200-25 MG TABLET PO SCH (07:49)
[2020-03-28] MEDS: PRENATAL VITAMINS W/ FOLIC ACID TABLET (FP) PO SCH (10:03)
[2020-03-28] MEDS: AMMONIUM LACTATE 12% LOTION 225 GM BOTTLE TP SCH (10:03)
[2020-03-28] MEDS: BACITRACIN 0.9 GM PACKET TP SCH (10:04)
== END 2020-03-28 10:15 | disposition home or self-care (01) | DRG 772 ==
LOC: YASAS 11:42 → Y3W 11:43
PROVIDERS: ADMIT Allergy & Immunology; ATTEND Allergy & Immunology
PROC: HZ42ZZZ Group Counseling for Substance Abuse Treatment, Cognitive-Behavioral (ICD-10-PCS; principal; 2020-03-22)
DX: F14.20 Cocaine dependence, uncomplicated (principal); F17.210 Nicotine dependence, cigarettes, uncomplicated; L85.3 Xerosis cutis; R63.4 Abnormal weight loss; J45.909 Unspecified asthma, uncomplicated; E11.9 Type 2 diabetes mellitus without complications; Z21 Asymptomatic human immunodeficiency virus [HIV] infection status; G62.9 Polyneuropathy, unspecified; Z79.84 Long term (current) use of oral hypoglycemic drugs; Z88.0 Allergy status to penicillin; Z91.018 Allergy to other foods; Z59.0 Homelessness
CPT/HCPCS: 82962; C9803; U0003

== ENCOUNTER 2020-07-08 10:50 | Inpatient (IN) | payer OTHER ==
[2020-07-08 11:34] VITALS: BMI 20.5
[2020-07-08] MEDS ORDERED: LOPERAMIDE HCL 2 MG CAPSULE PO PRN (17:24)
[2020-07-08] MEDS ORDERED: IBUPROFEN 400 MG TABLET (FP) PO PRN (17:24)
[2020-07-08] MEDS ORDERED: guaiFENesin 200 MG/10 ML 10 ML UNIT-DOSE CUPS PO PRN (17:24)
[2020-07-08] MEDS ORDERED: MAG HYDROX/AL HYDROX/SIMETH 30 ML UNIT-DOSE CUP PO PRN (17:24)
[2020-07-08] MEDS ORDERED: MAGNESIUM CITRATE 300 ML BOTTLE PO PRN (17:24)
[2020-07-08] MEDS ORDERED: MAGNESIUM HYDROX 2400MG/30ML ORAL SUSPENSION 30 ML CUP PO PRN (17:24)
[2020-07-08] MEDS ORDERED: ACETAMINOPHEN 325 MG TABLET (FP) PO PRN (17:24)
[2020-07-08] MEDS ORDERED: P-EPHED 60MG/TRIPROLIDI 2.5MG TABLET PO PRN (17:24)
[2020-07-08] MEDS ORDERED: ALBUTEROL SO4 HFA INHALER IH PRN (17:27)
[2020-07-08] MEDS ORDERED: COLLOIDAL OATMEAL 1 BAR EACH TP PRN (17:28)
[2020-07-08] MEDS ORDERED: MASKS NR ONE (18:13)
[2020-07-08] MEDS: hydrOXYzine PAMOATE 25 MG CAPSULE (FP) PO SCH ×2 (18:51→21:36)
[2020-07-08] MEDS: metFORMIN HCL 500 MG TABLET (FP) PO SCH (18:51)
[2020-07-08] MEDS: NYSTATIN 500,000 UNITS/5 ML SUSPENSION PO SCH (21:34)
[2020-07-08] MEDS: PRAMOXINE HCL 1% (SARNA SENSITIVE) 222 ML BOTTLE TP SCH (21:35)
[2020-07-08] MEDS: MELATONIN 5 MG TABLETS PO SCH (21:35)
[2020-07-08] MEDS: SULFAMETHOXAZOLE/TRIMETHOPRIM 800MG/160MG D.S. TABLET PO SCH (21:35)
[2020-07-08] MEDS: THIAMINE HCL 100 MG TABLET (FP) PO SCH (21:36)
[2020-07-08] MEDS: MOMETASONE FUROATE 220 MCG/IH INHALER IH SCH (22:23)
[2020-07-09] MEDS: hydrOXYzine PAMOATE 25 MG CAPSULE (FP) PO SCH ×5 (06:50→21:30)
[2020-07-09] MEDS: metFORMIN HCL 500 MG TABLET (FP) PO SCH ×2 (07:55→17:42)
[2020-07-09] MEDS: PRENATAL VITAMINS W/ FOLIC ACID TABLET (FP) PO SCH (09:57)
[2020-07-09] MEDS: SULFAMETHOXAZOLE/TRIMETHOPRIM 800MG/160MG D.S. TABLET PO SCH ×2 (09:58→21:30)
[2020-07-09] MEDS: BICTEGRAV/EMTRICIT/TENOFOV (BIKTARVY) 50-200-25 MG TABLET PO SCH (09:58)
[2020-07-09] MEDS: LACTOBACILLUS ACIDOPHILUS 1 TABLET PO SCH (09:58)
[2020-07-09] MEDS: NYSTATIN 500,000 UNITS/5 ML SUSPENSION PO SCH ×2 (10:00→21:30)
[2020-07-09] MEDS ORDERED: LACTOBACILLUS ACIDOPHILUS 1 TABLET PO SCH (10:00)
[2020-07-09] MEDS: PRAMOXINE HCL 1% (SARNA SENSITIVE) 222 ML BOTTLE TP SCH ×2 (10:00→21:30)
[2020-07-09 10:03] LABS: HEMATOCRIT 37.5 % (32.4-45.2); HEMOGLOBIN 12.3 GM/dL (10.7-15.3); MCH 26.2 pg (25.7-33.7); MCHC 32.9 g/dl (32.0-36.0); MEAN CELL VOLUME 79.8 fl (80-96); PLATELET COUNT 220 K/MM3 (134-434); RDW 14.2 % (11.6-15.6); WHITE BLOOD COUNT 3.9 K/mm3 (4.0-10.0)
[2020-07-09 10:23] LABS: ALBUMIN 3.2 g/dl (3.4-5.0); BLOOD UREA NITROGEN 9.6 mg/dL (7-18)
[2020-07-09 10:24] LABS: BILIRUBIN,TOTAL 0.4 mg/dL (0.2-1); CALCIUM 8.8 mg/dL (8.5-10.1); TOT PROT 8.8 g/dl (6.4-8.2)
[2020-07-09 10:26] LABS: CREATININE 0.8 mg/dL (0.55-1.3)
[2020-07-09] MEDS ORDERED: PT OWN MED DRAWER 7, Y5N ONE ×2 (16:24→19:24)
[2020-07-09] MEDS: MOMETASONE FUROATE 220 MCG/IH INHALER IH SCH (17:41)
[2020-07-09] MEDS: MELATONIN 5 MG TABLETS PO SCH (21:29)
[2020-07-09] MEDS: THIAMINE HCL 100 MG TABLET (FP) PO SCH (21:30)
[2020-07-09] MEDS: ARIPiprazole 2 MG TABLET PO SCH (22:48)
[2020-07-10] MEDS: hydrOXYzine PAMOATE 25 MG CAPSULE (FP) PO SCH ×6 (06:09→21:27)
[2020-07-10] MEDS: metFORMIN HCL 500 MG TABLET (FP) PO SCH ×2 (07:43→17:36)
[2020-07-10] MEDS ORDERED: PT OWN MED DRAWER 7, Y5N ONE ×3 (09:12→19:53)
[2020-07-10] MEDS: NYSTATIN 500,000 UNITS/5 ML SUSPENSION PO SCH ×2 (10:10→21:26)
[2020-07-10] MEDS: BICTEGRAV/EMTRICIT/TENOFOV (BIKTARVY) 50-200-25 MG TABLET PO SCH (10:10)
[2020-07-10] MEDS: LACTOBACILLUS ACIDOPHILUS 1 TABLET PO SCH (10:10)
[2020-07-10] MEDS: SULFAMETHOXAZOLE/TRIMETHOPRIM 800MG/160MG D.S. TABLET PO SCH ×2 (10:10→21:26)
[2020-07-10] MEDS: PRENATAL VITAMINS W/ FOLIC ACID TABLET (FP) PO SCH (10:10)
[2020-07-10] MEDS: PRAMOXINE HCL 1% (SARNA SENSITIVE) 222 ML BOTTLE TP SCH ×2 (10:14→22:04)
[2020-07-10 11:15] LABS: PH,URINE 6.5 (5.0-8.0); URINE APPEARANCE CLOUDY; URINE BILIRUBIN NEGATIVE (NEGATIVE); URINE COLOR YELLOW; URINE GLUCOSE (UA) NEGATIVE (NEGATIVE); URINE KETONE NEGATIVE (NEGATIVE); URINE LEUK ESTERASE NEGATIVE (NEGATIVE); URINE NITRITE NEGATIVE (NEGATIVE); URINE PROTEIN NEGATIVE (NEGATIVE)
[2020-07-10] MEDS: MOMETASONE FUROATE 220 MCG/IH INHALER IH SCH (17:26)
[2020-07-10] MEDS: THIAMINE HCL 100 MG TABLET (FP) PO SCH (21:26)
[2020-07-10] MEDS: ARIPiprazole 2 MG TABLET PO SCH (21:26)
[2020-07-10] MEDS: MELATONIN 5 MG TABLETS PO SCH (21:27)
[2020-07-11] MEDS: hydrOXYzine PAMOATE 25 MG CAPSULE (FP) PO SCH ×5 (06:09→21:45)
[2020-07-11] MEDS: metFORMIN HCL 500 MG TABLET (FP) PO SCH (08:11)
[2020-07-11] MEDS: LACTOBACILLUS ACIDOPHILUS 1 TABLET PO SCH (10:32)
[2020-07-11] MEDS: PRENATAL VITAMINS W/ FOLIC ACID TABLET (FP) PO SCH (10:32)
[2020-07-11] MEDS: BICTEGRAV/EMTRICIT/TENOFOV (BIKTARVY) 50-200-25 MG TABLET PO SCH (10:32)
[2020-07-11] MEDS: SULFAMETHOXAZOLE/TRIMETHOPRIM 800MG/160MG D.S. TABLET PO SCH ×2 (10:32→21:44)
[2020-07-11] MEDS: NYSTATIN 500,000 UNITS/5 ML SUSPENSION PO SCH ×2 (10:32→21:46)
[2020-07-11] MEDS: PRAMOXINE HCL 1% (SARNA SENSITIVE) 222 ML BOTTLE TP SCH ×2 (10:34→21:45)
[2020-07-11] MEDS: MOMETASONE FUROATE 220 MCG/IH INHALER IH SCH (17:16)
[2020-07-11] MEDS: MELATONIN 5 MG TABLETS PO SCH (21:43)
[2020-07-11] MEDS: ARIPiprazole 2 MG TABLET PO SCH (21:45)
[2020-07-11] MEDS: THIAMINE HCL 100 MG TABLET (FP) PO SCH (21:45)
[2020-07-12 03:06] LABS: SARS-CoV-2 NAA Not Detected (Not Detected)
[2020-07-12] MEDS: metFORMIN HCL 500 MG TABLET (FP) PO SCH (06:03)
[2020-07-12] MEDS: hydrOXYzine PAMOATE 25 MG CAPSULE (FP) PO SCH ×2 (06:03→10:15)
[2020-07-12] MEDS: LACTOBACILLUS ACIDOPHILUS 1 TABLET PO SCH (10:15)
[2020-07-12] MEDS: PRENATAL VITAMINS W/ FOLIC ACID TABLET (FP) PO SCH (10:15)
[2020-07-12] MEDS: NYSTATIN 500,000 UNITS/5 ML SUSPENSION PO SCH ×2 (10:15→22:20)
[2020-07-12] MEDS: PRAMOXINE HCL 1% (SARNA SENSITIVE) 222 ML BOTTLE TP SCH ×2 (10:17→22:23)
[2020-07-12] MEDS: BICTEGRAV/EMTRICIT/TENOFOV (BIKTARVY) 50-200-25 MG TABLET PO SCH (10:17)
[2020-07-12] MEDS: SULFAMETHOXAZOLE/TRIMETHOPRIM 800MG/160MG D.S. TABLET PO SCH ×2 (10:18→22:22)
[2020-07-12] MEDS ORDERED: PT OWN MED DRAWER 7, Y5N ONE ×2 (16:48→18:14)
[2020-07-12] MEDS: MOMETASONE FUROATE 220 MCG/IH INHALER IH SCH (17:26)
[2020-07-12] MEDS: hydrOXYzine PAMOATE 25 MG CAPSULE (FP) PO PRN ×2 (18:24→22:22)
[2020-07-12 19:28] VITALS: PULSE 65
[2020-07-12] MEDS: ARIPiprazole 2 MG TABLET PO SCH (22:22)
[2020-07-12] MEDS: MELATONIN 5 MG TABLETS PO SCH (22:22)
[2020-07-12] MEDS: THIAMINE HCL 100 MG TABLET (FP) PO SCH (22:22)
[2020-07-13] MEDS: metFORMIN HCL 500 MG TABLET (FP) PO SCH (06:01)
[2020-07-13 07:33] VITALS: BP 101/63; TEMP 96.9
[2020-07-13] MEDS: SULFAMETHOXAZOLE/TRIMETHOPRIM 800MG/160MG D.S. TABLET PO SCH (10:13)
[2020-07-13] MEDS: PRENATAL VITAMINS W/ FOLIC ACID TABLET (FP) PO SCH (10:14)
[2020-07-13] MEDS: LACTOBACILLUS ACIDOPHILUS 1 TABLET PO SCH (10:14)
[2020-07-13] MEDS: BICTEGRAV/EMTRICIT/TENOFOV (BIKTARVY) 50-200-25 MG TABLET PO SCH (10:14)
[2020-07-13] MEDS: NYSTATIN 500,000 UNITS/5 ML SUSPENSION PO SCH (10:14)
[2020-07-13] MEDS: PRAMOXINE HCL 1% (SARNA SENSITIVE) 222 ML BOTTLE TP SCH (10:15)
== END 2020-07-13 16:50 | disposition home or self-care (01) | DRG 772 ==
LOC: YASAS 10:50 → Y5N 17:05
PROVIDERS: ADMIT Allergy & Immunology; ATTEND Allergy & Immunology
PROC: HZ42ZZZ Group Counseling for Substance Abuse Treatment, Cognitive-Behavioral (ICD-10-PCS; principal; 2020-07-08)
DX: F10.20 Alcohol dependence, uncomplicated (principal); F14.20 Cocaine dependence, uncomplicated; F17.210 Nicotine dependence, cigarettes, uncomplicated; F31.9 Bipolar disorder, unspecified; F20.0 Paranoid schizophrenia; F19.282 Other psychoactive substance dependence with psychoactive substance-induced sleep disorder; F19.24 Other psychoactive substance dependence with psychoactive substance-induced mood disorder; Z21 Asymptomatic human immunodeficiency virus [HIV] infection status; G62.9 Polyneuropathy, unspecified; E11.9 Type 2 diabetes mellitus without complications; Z79.4 Long term (current) use of insulin; J45.909 Unspecified asthma, uncomplicated; L85.3 Xerosis cutis; L30.9 Dermatitis, unspecified; Z62.810 Personal history of physical and sexual abuse in childhood; Z88.0 Allergy status to penicillin; Z91.018 Allergy to other foods
CPT/HCPCS: 36415; 71046-TC-FY; 80053; 81003; 82962; 83036; 85027; 86780; C9803; U0003; U0005

== ENCOUNTER 2020-10-24 10:56 | Inpatient (IN) | payer OTHER ==
[2020-10-24 11:15] VITALS: BMI 18.8
[2020-10-24] MEDS ORDERED: LORazepam 1 MG TABLET PO PRN (18:22)
[2020-10-24] MEDS ORDERED: MAGNESIUM HYDROX 2400MG/30ML ORAL SUSPENSION 30 ML CUP PO PRN (18:22)
[2020-10-24] MEDS ORDERED: ONDANSETRON *ODT* 4 MG TABLET SL PRN (18:22)
[2020-10-24] MEDS ORDERED: MAG HYDROX/AL HYDROX/SIMETH 30 ML UNIT-DOSE CUP PO PRN (18:22)
[2020-10-24] MEDS ORDERED: BISMUTH SUBSALICYLATE 524 MG/30 ML PO PRN (18:22)
[2020-10-24] MEDS ORDERED: ACETAMINOPHEN 325 MG TABLET (FP) PO PRN ×2 (18:22)
[2020-10-24] MEDS ORDERED: METHOCARBAMOL 500 MG TABLET PO PRN (18:22)
[2020-10-24] MEDS ORDERED: MENTHOL/PHENOL 1 EACH UD MM PRN (18:22)
[2020-10-24] MEDS ORDERED: MAGNESIUM CITRATE 300 ML BOTTLE PO PRN (18:22)
[2020-10-24] MEDS ORDERED: IBUPROFEN 400 MG TABLET (FP) PO PRN (18:22)
[2020-10-24] MEDS ORDERED: COLLOIDAL OATMEAL 1 BAR EACH TP PRN (18:26)
[2020-10-24] MEDS ORDERED: ALBUTEROL SO4 HFA INHALER IH PRN (18:30)
[2020-10-24] MEDS ORDERED: LORazepam 2 MG TABLET PO ONE (18:45)
[2020-10-24] MEDS: LORazepam 2 MG TABLET PO SCH ×2 (20:11→22:47)
[2020-10-24] MEDS: THIAMINE HCL 100 MG TABLET (FP) PO SCH (22:47)
[2020-10-24] MEDS: hydrOXYzine PAMOATE 25 MG CAPSULE (FP) PO SCH (22:47)
[2020-10-24] MEDS: MELATONIN 5 MG TABLETS PO SCH (22:47)
[2020-10-24] MEDS: HYDROCORTISONE 1% TOPICAL OINT 30 GM TUBE TP SCH (22:48)
[2020-10-25] MEDS: LORazepam 2 MG TABLET PO SCH ×4 (06:07→22:25)
[2020-10-25] MEDS: hydrOXYzine PAMOATE 25 MG CAPSULE (FP) PO SCH ×5 (06:07→22:24)
[2020-10-25] MEDS: metFORMIN HCL 500 MG TABLET (FP) PO SCH ×2 (06:07→18:00)
[2020-10-25] MEDS: PRENATAL VITAMINS W/ FOLIC ACID TABLET (FP) PO SCH (10:17)
[2020-10-25] MEDS: HYDROCORTISONE 1% TOPICAL OINT 30 GM TUBE TP SCH ×2 (10:18→22:26)
[2020-10-25] MEDS: BICTEGRAV/EMTRICIT/TENOFOV (BIKTARVY) 50-200-25 MG TABLET PO SCH (10:49)
[2020-10-25 11:12] LABS: HEMATOCRIT 33.7 % (32.4-45.2); MCHC 32.6 g/dl (32.0-36.0); MEAN CELL VOLUME 79.8 fl (80-96); MEAN PLT VOLUME 8.1 fl (7.5-11.1); PLATELET COUNT 228 10^3/uL (134-434); RBC 4.22 M/mm3 (3.60-5.2); RDW 16.7 % (11.6-15.6); WHITE BLOOD COUNT 3.3 K/mm3 (4.0-10.0)
[2020-10-25 11:22] LABS: ALBUMIN 2.7 g/dl (3.4-5.0); BLOOD UREA NITROGEN 13.1 mg/dL (7-18); CALCIUM 8.5 mg/dL (8.5-10.1)
[2020-10-25 11:25] LABS: CREATININE 0.7 mg/dL (0.55-1.3)
[2020-10-25 11:26] LABS: BILIRUBIN,TOTAL 0.4 mg/dL (0.2-1)
[2020-10-25] MEDS: THIAMINE HCL 100 MG TABLET (FP) PO SCH (22:24)
[2020-10-25] MEDS: MELATONIN 5 MG TABLETS PO SCH (22:26)
[2020-10-26] MEDS: LORazepam 1 MG TABLET PO SCH ×4 (05:54→22:39)
[2020-10-26] MEDS: hydrOXYzine PAMOATE 25 MG CAPSULE (FP) PO SCH ×5 (05:55→22:36)
[2020-10-26] MEDS: metFORMIN HCL 500 MG TABLET (FP) PO SCH ×2 (06:44→17:33)
[2020-10-26] MEDS: BICTEGRAV/EMTRICIT/TENOFOV (BIKTARVY) 50-200-25 MG TABLET PO SCH (08:11)
[2020-10-26] MEDS: PRENATAL VITAMINS W/ FOLIC ACID TABLET (FP) PO SCH (10:32)
[2020-10-26] MEDS: HYDROCORTISONE 1% TOPICAL OINT 30 GM TUBE TP SCH (10:32)
[2020-10-26] MEDS: POTASSIUM CHLORIDE TABS 20 MEQ TABLET.ER (FP) PO SCH ×2 (10:32→22:36)
[2020-10-26] MEDS: FLUOCINONIDE 0.05% TOP OINT (60 GM TUBE) TP SCH (22:36)
[2020-10-26] MEDS: THIAMINE HCL 100 MG TABLET (FP) PO SCH (22:36)
[2020-10-26] MEDS: MELATONIN 5 MG TABLETS PO SCH (22:39)
[2020-10-27] MEDS ORDERED: LORazepam 0.5 MG TABLET PO PRN
[2020-10-27] MEDS: hydrOXYzine PAMOATE 25 MG CAPSULE (FP) PO SCH ×5 (06:10→22:52)
[2020-10-27] MEDS: LORazepam 0.5 MG TABLET PO SCH ×4 (06:11→22:53)
[2020-10-27] MEDS: NICOTINE 10 MG CARTRIDGE (INHALER) IH PRN (06:11)
[2020-10-27] MEDS: metFORMIN HCL 500 MG TABLET (FP) PO SCH ×2 (08:04→17:45)
[2020-10-27] MEDS: BICTEGRAV/EMTRICIT/TENOFOV (BIKTARVY) 50-200-25 MG TABLET PO SCH (08:05)
[2020-10-27] MEDS: PRENATAL VITAMINS W/ FOLIC ACID TABLET (FP) PO SCH (10:00)
[2020-10-27] MEDS: FLUOCINONIDE 0.05% TOP OINT (60 GM TUBE) TP SCH ×2 (10:01→22:52)
[2020-10-27] MEDS: MELATONIN 5 MG TABLETS PO SCH (22:52)
[2020-10-27] MEDS: THIAMINE HCL 100 MG TABLET (FP) PO SCH (22:52)
[2020-10-28] MEDS ORDERED: LORazepam 0.5 MG TABLET PO ONE (05:00)
[2020-10-28] MEDS: metFORMIN HCL 500 MG TABLET (FP) PO SCH (06:12)
[2020-10-28] MEDS: hydrOXYzine PAMOATE 25 MG CAPSULE (FP) PO SCH ×3 (06:12→13:53)
[2020-10-28] MEDS: BICTEGRAV/EMTRICIT/TENOFOV (BIKTARVY) 50-200-25 MG TABLET PO SCH (08:24)
[2020-10-28] MEDS: PRENATAL VITAMINS W/ FOLIC ACID TABLET (FP) PO SCH (10:23)
[2020-10-28] MEDS: FLUOCINONIDE 0.05% TOP OINT (60 GM TUBE) TP SCH (10:23)
[2020-10-28] MEDS: NICOTINE 10 MG CARTRIDGE (INHALER) IH PRN (13:53)
[2020-10-28 14:02] VITALS: BP 111/61; PULSE 89; TEMP 98.7
[2020-10-28 17:17] LABS: ALBUMIN 3.1 g/dl (3.4-5.0)
[2020-10-28 17:20] LABS: CREATININE 0.7 mg/dL (0.55-1.3)
[2020-10-28 17:22] LABS: BILIRUBIN,TOTAL 0.8 mg/dL (0.2-1); TOT PROT 8.5 g/dl (6.4-8.2)
== END 2020-10-28 16:15 | disposition other institution (70) | DRG 774 ==
LOC: YASAS 10:56 → Y6N 18:17
PROVIDERS: ADMIT Allergy & Immunology; ATTEND Allergy & Immunology
PROC: HZ2ZZZZ Detoxification Services for Substance Abuse Treatment (ICD-10-PCS; principal; 2020-10-24)
DX: F10.230 Alcohol dependence with withdrawal, uncomplicated (principal); F14.20 Cocaine dependence, uncomplicated; F17.210 Nicotine dependence, cigarettes, uncomplicated; Z21 Asymptomatic human immunodeficiency virus [HIV] infection status; D72.819 Decreased white blood cell count, unspecified; E87.6 Hypokalemia; E11.9 Type 2 diabetes mellitus without complications; J45.909 Unspecified asthma, uncomplicated; L30.9 Dermatitis, unspecified; R76.11 Nonspecific reaction to tuberculin skin test without active tuberculosis; R63.4 Abnormal weight loss; Z68.1 Body mass index [BMI] 19.9 or less, adult; Z79.84 Long term (current) use of oral hypoglycemic drugs; Z86.59 Personal history of other mental and behavioral disorders; Z88.0 Allergy status to penicillin; Z91.018 Allergy to other foods
CPT/HCPCS: 36415; 80053; 82962; 84132; 85027; 86780; C9803; U0003; U0005

== ENCOUNTER 2020-10-28 16:22 | Inpatient (IN) | payer OTHER ==
[2020-10-28] MEDS ORDERED: ALBUTEROL SO4 HFA INHALER IH PRN (19:03)
[2020-10-28] MEDS ORDERED: P-EPHED 60MG/TRIPROLIDI 2.5MG TABLET PO PRN (19:04)
[2020-10-28] MEDS ORDERED: guaiFENesin 200 MG/10 ML 10 ML UNIT-DOSE CUPS PO PRN (19:04)
[2020-10-28] MEDS ORDERED: MAGNESIUM HYDROX 2400MG/30ML ORAL SUSPENSION 30 ML CUP PO PRN (19:04)
[2020-10-28] MEDS ORDERED: hydrOXYzine PAMOATE 25 MG CAPSULE (FP) PO PRN (19:04)
[2020-10-28] MEDS ORDERED: MAG HYDROX/AL HYDROX/SIMETH 30 ML UNIT-DOSE CUP PO PRN (19:04)
[2020-10-28] MEDS ORDERED: MAGNESIUM CITRATE 300 ML BOTTLE PO PRN (19:04)
[2020-10-28] MEDS ORDERED: IBUPROFEN 400 MG TABLET (FP) PO PRN (19:04)
[2020-10-28] MEDS ORDERED: NICOTINE 10 MG CARTRIDGE (INHALER) IH PRN (19:04)
[2020-10-28] MEDS ORDERED: ACETAMINOPHEN 325 MG TABLET (FP) PO PRN (19:04)
[2020-10-28] MEDS ORDERED: LOPERAMIDE HCL 2 MG CAPSULE PO PRN (19:04)
[2020-10-28] MEDS ORDERED: MENTHOL/PHENOL 1 EACH UD MM PRN (19:04)
[2020-10-28] MEDS ORDERED: MELATONIN 5 MG TABLETS PO SCH (22:00)
[2020-10-28] MEDS ORDERED: THIAMINE HCL 100 MG TABLET (FP) PO SCH (22:00)
[2020-10-29] MEDS ORDERED: metFORMIN HCL 500 MG TABLET (FP) PO SCH (07:00)
[2020-10-29 07:17] VITALS: BP 139/89; PULSE 60; TEMP 97.1
[2020-10-29] MEDS ORDERED: BICTEGRAV/EMTRICIT/TENOFOV (BIKTARVY) 50-200-25 MG TABLET PO SCH (08:00)
[2020-10-29] MEDS ORDERED: PRENATAL VITAMINS W/ FOLIC ACID TABLET (FP) PO SCH (10:00)
== END 2020-10-29 09:50 | disposition home or self-care (01) | DRG 772 ==
LOC: YASAS 16:22 → Y5N 16:23
PROVIDERS: ADMIT Allergy & Immunology; ATTEND Allergy & Immunology
PROC: HZ42ZZZ Group Counseling for Substance Abuse Treatment, Cognitive-Behavioral (ICD-10-PCS; principal; 2020-10-28)
DX: F10.20 Alcohol dependence, uncomplicated (principal); F14.20 Cocaine dependence, uncomplicated; F17.210 Nicotine dependence, cigarettes, uncomplicated; F25.9 Schizoaffective disorder, unspecified; F31.9 Bipolar disorder, unspecified; Z21 Asymptomatic human immunodeficiency virus [HIV] infection status; G62.1 Alcoholic polyneuropathy; J45.909 Unspecified asthma, uncomplicated; L85.3 Xerosis cutis; Z86.59 Personal history of other mental and behavioral disorders; Z88.0 Allergy status to penicillin; Z91.018 Allergy to other foods; Z91.19 Patient's noncompliance with other medical treatment and regimen
CPT/HCPCS: 82962

== ENCOUNTER 2021-01-01 12:21 | Inpatient (IN) | payer OTHER ==
[2021-01-01 12:54] VITALS: BMI 20.5
[2021-01-01] MEDS ORDERED: IBUPROFEN 400 MG TABLET (FP) PO PRN (14:00)
[2021-01-01] MEDS ORDERED: ACETAMINOPHEN 325 MG TABLET (FP) PO PRN ×2 (14:00)
[2021-01-01] MEDS ORDERED: MAGNESIUM CITRATE 300 ML BOTTLE PO PRN (14:00)
[2021-01-01] MEDS ORDERED: MAG HYDROX/AL HYDROX/SIMETH 30 ML UNIT-DOSE CUP PO PRN (14:00)
[2021-01-01] MEDS ORDERED: ONDANSETRON *ODT* 4 MG TABLET SL PRN (14:00)
[2021-01-01] MEDS ORDERED: METHOCARBAMOL 500 MG TABLET PO PRN (14:00)
[2021-01-01] MEDS ORDERED: MENTHOL/PHENOL 1 EACH UD MM PRN (14:00)
[2021-01-01] MEDS ORDERED: BISMUTH SUBSALICYLATE 524 MG/30 ML PO PRN (14:00)
[2021-01-01] MEDS ORDERED: NICOTINE 10 MG CARTRIDGE (INHALER) IH PRN (14:00)
[2021-01-01] MEDS ORDERED: MAGNESIUM HYDROX 2400MG/30ML ORAL SUSPENSION 30 ML CUP PO PRN (14:00)
[2021-01-01] MEDS ORDERED: ALBUTEROL SO4 HFA INHALER IH PRN (14:02)
[2021-01-01] MEDS ORDERED: COLLOIDAL OATMEAL 1 BAR EACH TP PRN (14:02)
[2021-01-01] MEDS ORDERED: ARTIFICIAL TEARS (POLYVINYL ALCOHOL) OPTH DROPS OU PRN (14:03)
[2021-01-01] MEDS: hydrOXYzine PAMOATE 25 MG CAPSULE (FP) PO SCH ×3 (15:50→22:25)
[2021-01-01 16:36] LABS: HEMATOCRIT 34.3 % (32.4-45.2); HEMOGLOBIN 11.3 GM/dL (10.7-15.3); MCH 26.1 pg (25.7-33.7); MEAN CELL VOLUME 79.2 fl (80-96); MEAN PLT VOLUME 8.1 fl (7.5-11.1); PLATELET COUNT 223 10^3/uL (134-434); RBC 4.33 M/mm3 (3.60-5.2); RDW 14.9 % (11.6-15.6); WHITE BLOOD COUNT 3.7 K/mm3 (4.0-10.0)
[2021-01-01 16:40] LABS: CALCIUM 9.3 mg/dL (8.5-10.1)
[2021-01-01 16:41] LABS: ALBUMIN 3.5 g/dl (3.4-5.0); BLOOD UREA NITROGEN 12.3 mg/dL (7-18)
[2021-01-01 16:44] LABS: CREATININE 0.8 mg/dL (0.55-1.3)
[2021-01-01 16:45] LABS: BILIRUBIN,TOTAL 0.4 mg/dL (0.2-1); TOT PROT 9.8 g/dl (6.4-8.2)
[2021-01-01] MEDS ORDERED: THIAMINE HCL 100 MG TABLET (FP) PO SCH (22:00)
[2021-01-01] MEDS ORDERED: PATIENT'S OWN MEDICATION (NON-FORMULARY) (Beclomethasone Dipropionate [Qvar Redihaler] 10. IH SCH (22:00)
[2021-01-01] MEDS ORDERED: MELATONIN 5 MG TABLETS PO SCH (22:00)
[2021-01-01] MEDS: MOMETASONE FUROATE 110 MCG/IH INHALER IH SCH (22:28)
[2021-01-02] MEDS ORDERED: diazePAM 5 MG TABLET PO SCH (05:00)
[2021-01-02] MEDS: hydrOXYzine PAMOATE 25 MG CAPSULE (FP) PO SCH ×3 (06:19→14:22)
[2021-01-02] MEDS ORDERED: metFORMIN HCL 500 MG TABLET (FP) PO SCH (07:00)
[2021-01-02] MEDS ORDERED: BICTEGRAV/EMTRICIT/TENOFOV (BIKTARVY) 50-200-25 MG TABLET PO SCH (08:00)
[2021-01-02] MEDS ORDERED: diazePAM 5 MG TABLET PO PRN (08:46)
[2021-01-02] MEDS ORDERED: POTASSIUM CHLORIDE ORAL LIQUID 20 MEQ/15 ML PO ONE (09:41)
[2021-01-02] MEDS ORDERED: PRENATAL VITAMINS W/ FOLIC ACID TABLET (FP) PO SCH (10:00)
[2021-01-02] MEDS: MOMETASONE FUROATE 110 MCG/IH INHALER IH SCH (11:13)
[2021-01-02 12:50] VITALS: BP 111/63; PULSE 73; TEMP 97.3
[2021-01-03] MEDS ORDERED: diazePAM 5 MG TABLET PO SCH (06:00)
[2021-01-04] MEDS ORDERED: diazePAM 5 MG TABLET PO SCH (06:00)
[2021-01-05] MEDS ORDERED: diazePAM 5 MG TABLET PO ONE (06:00)
== END 2021-01-02 15:10 | disposition left against medical advice (07) | DRG 770 ==
LOC: YASAS 12:21 → Y6N 14:02 → UNDOADMIN 14:02
PROVIDERS: ADMIT Allergy & Immunology; ATTEND Allergy & Immunology
PROC: HZ2ZZZZ Detoxification Services for Substance Abuse Treatment (ICD-10-PCS; principal; 2021-01-01)
DX: F10.230 Alcohol dependence with withdrawal, uncomplicated (principal); F14.20 Cocaine dependence, uncomplicated; F17.213 Nicotine dependence, cigarettes, with withdrawal; F20.9 Schizophrenia, unspecified; F31.9 Bipolar disorder, unspecified; Z21 Asymptomatic human immunodeficiency virus [HIV] infection status; G62.9 Polyneuropathy, unspecified; I10 Essential (primary) hypertension; J45.20 Mild intermittent asthma, uncomplicated; E11.9 Type 2 diabetes mellitus without complications; Z79.84 Long term (current) use of oral hypoglycemic drugs; K13.0 Diseases of lips; L85.3 Xerosis cutis; L40.9 Psoriasis, unspecified; L30.8 Other specified dermatitis; R63.4 Abnormal weight loss; Z68.20 Body mass index [BMI] 20.0-20.9, adult; Z86.11 Personal history of tuberculosis; Z87.19 Personal history of other diseases of the digestive system; Z88.0 Allergy status to penicillin; Z91.018 Allergy to other foods; Z91.19 Patient's noncompliance with other medical treatment and regimen
CPT/HCPCS: 36415; 80053; 81025; 82962; 85027; 86780; C9803; U0003; U0005